=== PATIENT | female | born 1985 | race Caucasian/White ===

== ENCOUNTER 2017-12-10 19:48 | Emergency (ER) | payer BC ==
[2017-12-10] MEDS ORDERED: TRAMADOL HCL 50 MG TAB ONE (20:35)
--- NOTE | 2017-12-10 21:19 | RAD REPORT ---
EXAM DESCRIPTION: RAD - Foot Right 3 View - 12/10/2017 9:10 pm CLINICAL HISTORY: PAIN Smash injury to fifth toe COMPARISON: <Comparisons> FINDINGS: Soft tissue swelling is seen affecting the fifth toe. No fractures seen.
--- NOTE | 2017-12-10 22:30 | ER ---
Nurse's Notes [facility] Name: Soha Ruiz Age: 32 yrs Sex: Female : 1985 Arrival Date: 12/10/2017 Time: 20:06 Bed 20 Private MD: Diagnosis: Contusion right 5th toe Presentation: 12/10 20:06 Presenting complaint: Patient states: dropped full spaghetti sauce jar onto her right tl3 foot, fifth toe is red and swollen. Transition of care: patient was not received from another setting of care. Onset of symptoms was December 10, 2017 at 20:07. Risk Assessment: Do you want to hurt yourself or someone else? Patient reports no desire to harm self or others. Initial Sepsis Screen: Does the patient meet any 2 criteria? No. Patient's initial sepsis screen is negative. Does the patient have a suspected source of infection? No. Patient's initial sepsis screen is negative. Care prior to arrival: None. 20:06 Method Of Arrival: Ambulatory tl3 20:06 Acuity: JEREMIAH 4 tl3 Triage Assessment: 20:08 General: Appears uncomfortable, well groomed, well developed, well nourished, Behavior tl3 is calm, cooperative, appropriate for age. Pain: Complains of pain in right fifth toe and Right fifth toenail Pain currently is 8 out of 10 on a pain scale. 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 - Social history:: Smoking status: Patient uses tobacco products, denies chronic smoking, but will smoke occasionally. - Ebola Screening: : Patient denies travel to an Ebola-affected area in the 21 days before illness onset No symptoms or risks identified at this time. Screenin:24 Abuse screen: Denies threats or abuse. Denies injuries from another. Nutritional bp screening: No deficits noted. Tuberculosis screening: No symptoms or risk factors identified. Fall Risk None identified. Assessment: 20:30 General: Appears in no apparent distress. comfortable, Behavior is calm, cooperative, bp appropriate for age. Pain: Complains of pain in right foot. Neuro: Level of Consciousness is awake, alert, obeys commands, Oriented to person, place, time, situation, Appropriate for age. Cardiovascular: No deficits noted. Respiratory: Airway is patent Respiratory effort is even, unlabored, Respiratory pattern is regular, symmetrical. GI: No signs and/or symptoms were reported involving the gastrointestinal system. : No signs and/or symptoms were reported regarding the genitourinary system. EENT: No deficits noted. Derm: No deficits noted. Musculoskeletal: Circulation, motion, and sensation intact. Range of motion: intact in all extremities. 22:43 Reassessment: PT D/C HOME AMBULATORY WITH FAMILY, DX WITH TOE CONTUSION. bp Vital Signs: 20:08 BP 121 / 79; Pulse 73; Resp 18; Temp 98.5; Pulse Ox 100% ; Weight 54.43 kg; Height 5 tl3 ft. 2 in. (157.48 cm); 22:44 BP 131 / 73; Pulse 75; Resp 18; Pulse Ox 100% ; bp 20:08 Body Mass Index 21.95 (54.43 kg, 157.48 cm) tl3 ED Course: 20:06 Patient arrived in ED. es 20:08 Triage completed. tl3 20:08 Arm band placed on left wrist. tl3 20:11 Aston Lezama MD is Attending Physician. pkl 20:23 Bijan Rangel, WM is Primary Nurse. bp 20:24 Patient has correct armband on for positive identification. Bed in low position. Call bp light in reach. Side rails up X2. Adult w/ patient. 21:06 X-ray completed. Portable x-ray completed in exam room. Patient tolerated procedure la2 well. 21:10 Foot Right 3 View XRAY In Process Unspecified. EDMS 22:28 Aced wrapped rt foot with 2 in kojo wrap. cc 22:43 No provider procedures requiring assistance completed. Patient did not have IV access bp during this emergency room visit. Administered Medications: 20:35 Drug: UltRAM 50 mg Route: PO; bp 21:01 Follow up: Response: Pain is decreased bp Outcome: 22:29 Discharge ordered by . pkl 22:44 Discharged to home ambulatory, with family. bp 22:44 Condition: stable 22:44 Discharge instructions given to patient, Instructed on discharge instructions, follow up and referral plans. medication usage, Demonstrated understanding of instructions, follow-up care, medications, Prescriptions given X 1. 22:44 Patient left the ED. bp Signatures: Dispatcher [employer] Aston Bhatti MD MD pkl Salyer, Edna es Christian, Chelsea cc Ardoin, Leslie la2 Peltier, Brian, RN RN bp Kelsey Schneider RN RN tl3
--- NOTE | 2017-12-10 22:30 | EDPHYS ---
Physician Documentation [facility] Name: Soha Ruiz Age: 32 yrs Sex: Female : 1985 Arrival Date: 12/10/2017 Time: 20:06 Bed 20 Private MD: ED Physician Aston Lezama HPI: 12/10 20:16 This 32 yrs old Female presents to ER via Ambulatory with complaints of Flank pkl Pain. 20:16 The patient presents with an injury, pain, that is acute. The complaints affect the pkl right fifth toe. Context: resulted from Dropped full spaghetti sauce jar onto her right 5th toe. Onset: The symptoms/episode began/occurred just prior to arrival. 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 - Social history:: Smoking status: Patient uses tobacco products, denies chronic smoking, but will smoke occasionally. - Ebola Screening: : Patient denies travel to an Ebola-affected area in the 21 days before illness onset No symptoms or risks identified at this time. ROS: 20:16 MS/extremity: Positive for pain, swelling, tenderness, of the right fifth toe. pkl 20:16 Eyes: Negative for injury, pain, redness, and discharge, ENT: Negative for injury, pain, and discharge, Neck: Negative for injury, pain, and swelling, Cardiovascular: Negative for chest pain, palpitations, and edema, Respiratory: Negative for shortness of breath, cough, wheezing, and pleuritic chest pain, Abdomen/GI: Negative for abdominal pain, nausea, vomiting, diarrhea, and constipation, Back: Negative for injury and pain, : Negative for injury, bleeding, discharge, and swelling, Skin: Negative for injury, rash, and discoloration, Neuro: Negative for headache, weakness, numbness, tingling, and seizure. Exam: 20:16 Head/Face: Normocephalic, atraumatic. Eyes: Pupils equal round and reactive to light, pkl extra-ocular motions intact. Lids and lashes normal. Conjunctiva and sclera are non-icteric and not injected. Cornea within normal limits. Periorbital areas with no swelling, redness, or edema. ENT: Nares patent. No nasal discharge, no septal abnormalities noted. Tympanic membranes are normal and external auditory canals are clear. Oropharynx with no redness, swelling, or masses, exudates, or evidence of obstruction, uvula midline. Mucous membranes moist. Neck: Trachea midline, no thyromegaly or masses palpated, and no cervical lymphadenopathy. Supple, full range of motion without nuchal rigidity, or vertebral point tenderness. No Meningismus. Chest/axilla: Normal chest wall appearance and motion. Nontender with no deformity. No lesions are appreciated. Cardiovascular: Regular rate and rhythm with a normal S1 and S2. No gallops, murmurs, or rubs. Normal PMI, no JVD. No pulse deficits. Respiratory: Lungs have equal breath sounds bilaterally, clear to auscultation and percussion. No rales, rhonchi or wheezes noted. No increased work of breathing, no retractions or nasal flaring. Abdomen/GI: Soft, non-tender, with normal bowel sounds. No distension or tympany. No guarding or rebound. No evidence of tenderness throughout. Back: No spinal tenderness. No costovertebral tenderness. Full range of motion. Skin: Warm, dry with normal turgor. Normal color with no rashes, no lesions, and no evidence of cellulitis. Neuro: Awake and alert, GCS 15, oriented to person, place, time, and situation. Cranial nerves II-XII grossly intact. Motor strength 5/5 in all extremities. Sensory grossly intact. Cerebellar exam normal. Normal gait. 20:16 Musculoskeletal/extremity: Extremities: grossly normal except: noted in the right fifth toe: pain, swelling, tenderness. Vital Signs: 20:08 BP 121 / 79; Pulse 73; Resp 18; Temp 98.5; Pulse Ox 100% ; Weight 54.43 kg; Height 5 tl3 ft. 2 in. (157.48 cm); 22:44 BP 131 / 73; Pulse 75; Resp 18; Pulse Ox 100% ; bp 20:08 Body Mass Index 21.95 (54.43 kg, 157.48 cm) tl3 MDM: 20:11 Patient medically screened. pkl 22:28 Data reviewed: vital signs, nurses notes, radiologic studies, plain films. pkl 06/17 20:21 Order name: Foot Right 3 View XRAY; Complete Time: 01:21 pkl Administered Medications: 20:35 Drug: UltRAM 50 mg Route: PO; bp 21:01 Follow up: Response: Pain is decreased bp Disposition: 12/10/17 22:29 Discharged to Home. Impression: Contusion right 5th toe. - Condition is Stable. - Prescriptions for Ultram 50 mg Oral Tablet - take 1 tablet by ORAL route every 8 hours As needed; 20 tablet. - Medication Reconciliation Form, Thank You Letter, Antibiotic Education, Prescription Opioid Use form. - Follow up: Private Physician; When: 2 - 3 days; Reason: Re-evaluation by your physician. - Problem is new. - Symptoms have improved. Signatures: Dispatcher [employer] EDMS Aston Lezama MD MD pkl Bijan Rangel, RN RN bp Kelsey Schneider RN RN tl3 Corrections: (The following items were deleted from the chart) 22:44 22:29 12/10/2017 22:29 Discharged to Home. Impression: Contusion right 5th toe. bp Condition is Stable. Forms are Medication Reconciliation Form, Thank You Letter, Antibiotic Education, Prescription Opioid Use. Follow up: Private Physician; When: 2 - 3 days; Reason: Re-evaluation by your physician. Problem is new. Symptoms have improved. pkl
== END 2017-12-10 22:44 | disposition home or self-care (01) ==
LOC: ER 19:48
DX: S90.121A Contusion of right lesser toe(s) without damage to nail, initial encounter (principal); W22.8XXA Striking against or struck by other objects, initial encounter; Y93.89 Activity, other specified; Y92.9 Unspecified place or not applicable; Z72.0 Tobacco use
CPT/HCPCS: 99284

== ENCOUNTER 2018-01-27 13:58 | Emergency (ER) | payer BC ==
[2018-01-27 14:56] LABS: Urine Blood NEGATIVE (NEG); Urine Glucose NEGATIVE (NEG); Urine Protein NEGATIVE (NEG); Urine pH 7.5 (5.0-7.0)
[2018-01-27 14:59] LABS: Absolute Lymphocytes (CBC) 1.8 K/uL (0.7-4.9); Absolute Monocytes 0.6 K/uL (0.1-1.3); Absolute Neutrophil 5.5 K/uL (1.8-8.0); Basophils % 0.3 % (0-1.3); Eosinophils % 0.7 % (0-4.4); Hematocrit 44.6 % (36.0-45.0); Lymphocytes % 22.3 % (15.3-44.8); MCH 31.5 pg (27.0-35.0); MCV 91.1 fL (80-100); Monocytes % 7.4 % (3.3-12.3)
[2018-01-27 15:22] LABS: Bilirubin Direct 0.2 mg/dL (0-0.2); Bilirubin Total 0.5 mg/dL (0.2-1.0); Potassium 3.8 mmol/L (3.5-5.1); Protein, Total 7.7 g/dL (6.4-8.2)
[2018-01-27] MEDS ORDERED: FENTANYL CITR 100 MCG/2 ML ONE ×2 (15:27→19:29)
[2018-01-27] MEDS ORDERED: ONDANSETRON 4 MG/2 ML VIAL ONE (15:27)
--- NOTE | 2018-01-27 17:20 | RAD REPORT ---
EXAM DESCRIPTION: CTAbdomen Pelvis W Contrast - 01/27/2018 5:06 pm CLINICAL HISTORY: Abdominal pain. r/o appy ;Abd pain COMPARISON: No comparisons TECHNIQUE: Biphasic CT imaging of the abdomen and pelvis was performed with 100 ml non-ionic IV cont rast. All CT scans are performed using dose optimization technique as appropriate and may include automated exposure control or mA/KV adjustment according to patient size. FINDINGS: The lung bases are clear. The liver demonstrates no aggressive mass or intrahepatic biliary dilatation. Linear hypodensities al aidee the subcapsular margin of the right lobe of the liver noted, nonspecific. The spleen, pancreas, a drenal glands and kidneys are within normal limits. No bowel obstruction, free air, intra-abdominal free fluid or abscess. The appendix is normal. No e vidence of significant lymphadenopathy. The cervix and uterus of the boggy appearance with trace pelv ic free fluid. No suspicious bony findings. IMPRESSION: Normal appendix. Boggy/edematous appearance to the gynecologic organs noted with trace pelvic free fluid. Advise corre lation with possibility gynecologic inflammation or infection.
--- NOTE | 2018-01-27 18:18 | RAD REPORT ---
EXAM DESCRIPTION: US - Transvaginal Study Probe - 01/27/2018 6:10 pm CLINICAL HISTORY: abnormal pelvic CT;Abd pain Pelvic pain. COMPARISON: Abdomen Pelvis W Contrast dated 01/27/2018 FINDINGS: The uterus is normal in size, shape and echotexture. Small 9 mm posterior fundal subserosa l fibroid noted. The uterus measures 8.3 x 5.1 x 4.9 cm. The endometrial stripe measures 8 mm, normal. Both ovaries are normal in size, shape and echotexture. The right ovary measures 3.7 x 2.7 x 1.8 cm. The left ovary measures 2.9 x 1.8 x 1.1 cm. No ovarian or parovarian lesions. No adnexal masses. Normal Doppler blood flow was demonstrated to both ovaries. Mild to moderate pelvic free fluid. IMPRESSION: Small myometrial fibroid. Mild to moderate pelvic free fluid.
--- NOTE | 2018-01-27 19:11 | ER ---
Nurse's Notes [facility] Name: Soha Ray Age: 32 yrs Sex: Female : 1985 Arrival Date: 01/27/2018 Time: 14:02 Bed 7 Private MD: Diagnosis: Uterine fibroid Presentation: 01/27 14:09 Presenting complaint: Patient states: was sent from [facility] urgent care, RLQ pain since yesterday, tender on palpation, c/o nausea, no vomiting, no urinary symptoms. Transition of care: patient was not received from another setting of care. Onset of symptoms was January 27, 2018. Risk Assessment: Do you want to hurt yourself or someone else? Patient reports no desire to harm self or others. Initial Sepsis Screen: Does the patient meet any 2 criteria? No. Patient's initial sepsis screen is negative. Does the patient have a suspected source of infection? No. Patient's initial sepsis screen is negative. Care prior to arrival:. 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 - Social history:: Smoking status: Patient uses tobacco products, denies chronic smoking, but will smoke occasionally. - Ebola Screening: : Patient negative for fever greater than or equal to 101.5 degrees Fahrenheit, and additional compatible Ebola Virus Disease symptoms Patient denies exposure to infectious person Patient denies travel to an Ebola-affected area in the 21 days before illness onset No symptoms or risks identified at this time. Screenin:02 Abuse screen: Denies threats or abuse. Denies injuries from another. Nutritional jl7 screening: No deficits noted. Tuberculosis screening: No symptoms or risk factors identified. Fall Risk IV access (20 points). Total Ayoub Fall Scale indicates No Risk (0-24 pts). Assessment: 14:00 General: Appears in no apparent distress. uncomfortable, Behavior is calm, cooperative, jl7 appropriate for age. Pain: Complains of pain in right lower quadrant Pain radiates to right low back Pain currently is 6 out of 10 on a pain scale. Quality of pain is described as dull, sharp, Is intermittent. Neuro: Level of Consciousness is awake, alert, obeys commands, Oriented to person, place, time, situation, Moves all extremities. Gait is steady. Cardiovascular: Patient's skin is warm and dry. Respiratory: Airway is patent Respiratory effort is even, unlabored, Respiratory pattern is regular, symmetrical. GI: Abdomen is flat, non-distended, Bowel sounds present X 4 quads. Abd is soft X 4 quads Abd is non tender in right upper quadrant, left upper quadrant and left lower quadrant Abdomen is tender to palpation in right lower quadrant. : Urine is cloudy, Reports urinary frequency, Denies burning with urination. EENT: No signs and/or symptoms were reported regarding the EENT system. Derm: Skin is pink, warm \T\ dry. Musculoskeletal: No signs and/or symptoms reported regarding the musculoskeletal system. 15:15 Reassessment: Pt c/o CAMPBELL, rated 8/10 and requesting medication for nausea. Provider [place] notified, see MAR for orders. 15:35 Reassessment: Patient and/or family updated on plan of care and expected duration. Pain jl7 level reassessed. Patient is alert, oriented x 3, equal unlabored respirations, skin warm/dry/pink. Patient states symptoms have improved. 19:40 Reassessment: Patient appears in no apparent distress at this time. Patient and/or aa1 family updated on plan of care and expected duration. Pain level reassessed. Patient is alert, oriented x 3, equal unlabored respirations, skin warm/dry/pink. Pt medicated for pain prior to d/c. Will d/c after 15 min shot time. Discussed d/c \T\ f/u instructions with pt; denies questions or concerns at this time. Vital Signs: 14:00 BP 133 / 85; Pulse 84; Resp 16 S; Temp 98.5(O); Pulse Ox 100% on R/A; Weight 58.97 kg jl7 (R); Height 5 ft. 2 in. (157.48 cm) (R); Pain 6/10; 15:02 BP 114 / 78; Pulse 76; Resp 16; Pulse Ox 100% ; jl7 16:03 BP 108 / 60; Pulse 72; Resp 16; Pulse Ox 100% on R/A; jl7 19:35 BP 106 / 69; Pulse 73; Resp 16; Pulse Ox 100% on R/A; aa1 14:00 Body Mass Index 23.78 (58.97 kg, 157.48 cm) jl7 ED Course: 14:02 Patient arrived in ED. rg4 14:04 Mahad Jimenez MD is Attending Physician. neeraj 14:05 Rambo Mcgregor PA is PHCP. jr8 14:05 Kalina Taveras RN is Primary Nurse. jl7 14:10 Triage completed. iw 14:11 Arm band placed on. iw 14:28 Oral contrast given. vm2 14:30 Initial lab(s) drawn, by me, sent to lab. Urine collected: clean catch specimen, jl7 cloudy. Inserted saline lock: 22 gauge in left antecubital area, using aseptic technique. Blood collected. 15:02 Patient has correct armband on for positive identification. Placed in gown. Bed in low jl7 position. Call light in reach. Side rails up X 1. Pulse ox on. NIBP on. 17:06 CT Abd/Pelvis - W/Contrast In Process Unspecified. EDMS 17:15 Assist provider with pelvic exam: Set up pelvic tray. Performed by Rambo MACHADO jl7 Specimens sent to lab. Patient tolerated well. 17:43 PHCP role handed off by Rambo Mcgregor PA snw 17:43 Soraya Patiño FNP-C is PHCP. snw 18:05 Ultrasound completed. Patient tolerated well. sg3 18:11 US Transvaginal Study (Probe) In Process Unspecified. EDMS 20:01 IV discontinued, intact, bleeding controlled, No redness/swelling at site. Pressure aa1 dressing applied. Administered Medications: 15:23 Drug: Zofran 4 mg Route: IVP; Site: left antecubital; jl7 15:35 Follow up: Response: No adverse reaction; Nausea is decreased jl7 15:25 Drug: fentaNYL (PF) 50 mcg Route: IVP; Site: left antecubital; jl7 15:35 Follow up: Response: No adverse reaction; Pain is decreased jl7 17:35 Drug: fentaNYL (PF) 50 mcg Route: IVP; Site: left antecubital; jl7 18:00 Follow up: Response: No adverse reaction; Pain is decreased jl7 19:40 Drug: TORadol 30 mg Route: IVP; Site: left antecubital; aa1 19:40 Drug: fentaNYL (PF) 25 mcg Route: IM; Site: right deltoid; aa1 Outcome: 19:10 Discharge ordered by . minerva 20:01 Discharged to home ambulatory. aa1 20:01 Condition: good 20:01 Discharge instructions given to patient, Instructed on discharge instructions, follow up and referral plans. medication usage, Demonstrated understanding of instructions, follow-up care, medications, Prescriptions given X 1. 20:02 Patient left the ED. aa1 Signatures: Dispatcher [employer] EDMS Oly Lyles RN RN aa1 Mahad Jimenez MD MD cha Therrien, Shelly, MARBLE SETTER HELPER-C MARBLE SETTER HELPER-Csnw Soco Celeste RN RN iw Roszak, Josh, PA PA jr8 Garcia, Rubi rg4 Kalina Taveras RN RN jl7 Saima Kaiser Shannan Garcia 3
--- NOTE | 2018-01-27 19:11 | EDPHYS ---
Physician Documentation [facility] Name: Soha Ray Age: 32 yrs Sex: Female : 1985 Arrival Date: 01/27/2018 Time: 14:02 Bed 7 Private MD: ED Physician Mahad Jimenez HPI: 01/27 14:36 This 32 yrs old Female presents to ER via Ambulatory with complaints of jr8 Abdominal Pain. 14:36 The patient presents with abdominal pain right lower quadrant. Onset: The jr8 symptoms/episode began/occurred acutely, yesterday. The symptoms radiate to right back. Associated signs and symptoms: none. The symptoms are described as stabbing. Modifying factors: The symptoms are alleviated by nothing, the symptoms are aggravated by nothing. Severity of pain: At its worst the pain was moderate in the emergency department the pain is unchanged. The patient has not experienced similar symptoms in the past. The patient has been recently seen at an urgent care. 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 - Social history:: Smoking status: Patient uses tobacco products, denies chronic smoking, but will smoke occasionally. - Ebola Screening: : Patient negative for fever greater than or equal to 101.5 degrees Fahrenheit, and additional compatible Ebola Virus Disease symptoms Patient denies exposure to infectious person Patient denies travel to an Ebola-affected area in the 21 days before illness onset No symptoms or risks identified at this time. ROS: 14:36 Eyes: Negative for injury, pain, redness, and discharge, ENT: Negative for injury, jr8 pain, and discharge, Neck: Negative for injury, pain, and swelling, Cardiovascular: Negative for chest pain, palpitations, and edema, Respiratory: Negative for shortness of breath, cough, wheezing, and pleuritic chest pain, Back: Negative for injury and pain, MS/Extremity: Negative for injury and deformity, Skin: Negative for injury, rash, and discoloration, Neuro: Negative for headache, weakness, numbness, tingling, and seizure. 14:36 Abdomen/GI: Positive for abdominal pain, Negative for nausea, vomiting, and diarrhea, abdominal distension, anorexia, dysphagia, hematemesis, black/tarry stool, rectal pain, rectal bleeding, bowel incontinence, flatulence. Exam: 14:36 Eyes: Pupils equal round and reactive to light, extra-ocular motions intact. Lids and jr8 lashes normal. Conjunctiva and sclera are non-icteric and not injected. Cornea within normal limits. Periorbital areas with no swelling, redness, or edema. ENT: Nares patent. No nasal discharge, no septal abnormalities noted. Tympanic membranes are normal and external auditory canals are clear. Oropharynx with no redness, swelling, or masses, exudates, or evidence of obstruction, uvula midline. Mucous membranes moist. Neck: Trachea midline, no thyromegaly or masses palpated, and no cervical lymphadenopathy. Supple, full range of motion without nuchal rigidity, or vertebral point tenderness. No Meningismus. Cardiovascular: Regular rate and rhythm with a normal S1 and S2. No gallops, murmurs, or rubs. Normal PMI, no JVD. No pulse deficits. Respiratory: Lungs have equal breath sounds bilaterally, clear to auscultation and percussion. No rales, rhonchi or wheezes noted. No increased work of breathing, no retractions or nasal flaring. Back: No spinal tenderness. No costovertebral tenderness. Full range of motion. Skin: Warm, dry with normal turgor. Normal color with no rashes, no lesions, and no evidence of cellulitis. MS/ Extremity: Pulses equal, no cyanosis. Neurovascular intact. Full, normal range of motion. Neuro: Awake and alert, GCS 15, oriented to person, place, time, and situation. Cranial nerves II-XII grossly intact. Motor strength 5/5 in all extremities. Sensory grossly intact. Cerebellar exam normal. Normal gait. 14:36 Abdomen/GI: Inspection: abdomen appears normal, Bowel sounds: active, all quadrants, Palpation: soft, in all quadrants, moderate abdominal tenderness, in the right lower quadrant, mass, is not appreciated, rebound tenderness, is not appreciated, voluntary guarding, is not appreciated, involuntary guarding, is not appreciated, no appreciated organomegaly, Indicators: McBurney's point is tender, Deshpande's sign is negative, Rovsing's sign is negative, Obturator sign is positive, Psoas sign is negative, Liver: no appreciated palpable abnormalities. Vital Signs: 14:00 BP 133 / 85; Pulse 84; Resp 16 S; Temp 98.5(O); Pulse Ox 100% on R/A; Weight 58.97 kg jl7 (R); Height 5 ft. 2 in. (157.48 cm) (R); Pain 6/10; 15:02 BP 114 / 78; Pulse 76; Resp 16; Pulse Ox 100% ; jl7 16:03 BP 108 / 60; Pulse 72; Resp 16; Pulse Ox 100% on R/A; jl7 19:35 BP 106 / 69; Pulse 73; Resp 16; Pulse Ox 100% on R/A; aa1 14:00 Body Mass Index 23.78 (58.97 kg, 157.48 cm) jl7 MDM: 14:05 Patient medically screened. 8 17:39 Data reviewed: vital signs, nurses notes, lab test result(s), radiologic studies, CT jr8 scan, ultrasound. Data interpreted: Pulse oximetry: on room air is 100 %. Interpretation: normal. Counseling: I had a detailed discussion with the patient and/or guardian regarding: the historical points, exam findings, and any diagnostic results supporting the discharge/admit diagnosis, lab results, radiology results. Transition of care: After a detail discussion of the patient's case, care is transferred to Soraya Patiño [facility]. 01/27 14:15 Order name: Basic Metabolic Panel; Complete Time: 15:25 [facility] 01/27 14:15 Order name: CBC with Diff; Complete Time: 15:13 [facility] 01/27 14:15 Order name: Creatinine for Radiology; Complete Time: 15:28 [facility] 01/27 14:15 Order name: Hepatic Function; Complete Time: 15:25 [facility] 01/27 14:15 Order name: Lipase; Complete Time: 15:25 [facility] 01/27 14:48 Order name: Urine Dipstick--Ancillary (enter results); Complete Time: 15:13 [facility] 01/27 14:15 Order name: CT Abd/Pelvis - W/Contrast; Complete Time: 17:21 [facility] 01/27 14:48 Order name: Urine --Ancillary (enter results); Complete Time: 15:13 [facility] 01/27 17:25 Order name: US Transvaginal Study (Probe); Complete Time: 18:35 01/27 17:26 Order name: Wet Prep; Complete Time: 19:08 01/27 17:26 Order name: GC (GONORR/CHLAMYDIA) Probe [facility] 01/27 14:15 Order name: Urine Test (obtain specimen); Complete Time: 14:56 01/27 14:15 Order name: IV Saline Lock; Complete Time: 14:56 01/27 14:15 Order name: Labs collected and sent; Complete Time: 14:56 01/27 14:15 Order name: Urine Dipstick-Ancillary (obtain specimen); Complete Time: 14:56 Administered Medications: 15:23 Drug: Zofran 4 mg Route: IVP; Site: left antecubital; jl7 15:35 Follow up: Response: No adverse reaction; Nausea is decreased jl7 15:25 Drug: fentaNYL (PF) 50 mcg Route: IVP; Site: left antecubital; jl7 15:35 Follow up: Response: No adverse reaction; Pain is decreased jl7 17:35 Drug: fentaNYL (PF) 50 mcg Route: IVP; Site: left antecubital; jl7 18:00 Follow up: Response: No adverse reaction; Pain is decreased jl7 19:40 Drug: TORadol 30 mg Route: IVP; Site: left antecubital; aa1 19:40 Drug: fentaNYL (PF) 25 mcg Route: IM; Site: right deltoid; aa1 Disposition: 01/27/18 19:10 Discharged to Home. Impression: Uterine fibroid. - Condition is Stable. - Discharge Instructions: Abdominal Pain, Adult, Uterine Fibroids. - Prescriptions for Diclofenac Sodium 75 mg Oral Tablet Sustained Release - take 1 tablet by ORAL route 2 times per day; 30 tablet. - Medication Reconciliation Form, Thank You Letter, Antibiotic Education, Prescription Opioid Use form. - Follow up: Private Physician; When: 5 - 6 days; Reason: Recheck today's complaints, Continuance of care, Re-evaluation by your physician. Follow up: Emergency Department; When: As needed; Reason: Worsening of condition. Addendum: 01/29/2018 13:57 Co-signature as Attending Physician, Mahad Jimenez MD I agree with the assessment and c brown plan of care. Signatures: Dispatcher [employer] EDOly Chatterjee RN RN aa1 Mahad Jimenez MD MD cha Therrien, Shelly, TERRAZZO LAYER-C TERRAZZO LAYER-Csnw Soco Celeste RN RN Rambo May PA PA jr8 Kalina Taveras RN RN jl7 Corrections: (The following items were deleted from the chart) 01/27 20:02 19:10 01/27/2018 19:10 Discharged to Home. Impression: Uterine fibroid. Condition is aa1 Stable. Discharge Instructions: Abdominal Pain, Adult, Uterine Fibroids. Prescriptions for Diclofenac Sodium 75 mg Oral Tablet Sustained Release - take 1 tablet by ORAL route 2 times per day; 30 tablet. and Forms are Medication Reconciliation Form, Thank You Letter, Antibiotic Education, Prescription Opioid Use. Follow up: Private Physician; When: 5 - 6 days; Reason: Recheck today's complaints, Continuance of care, Re-evaluation by your physician. Follow up: Emergency Department; When: As needed; Reason: Worsening of condition. snw
[2018-01-27] MEDS ORDERED: KETOROLAC 30 MG/ML INJ ONE (19:29)
[2018-01-30 20:33] LABS: C.trachomatis RNA,TMA Not Detected (Not Detected)
== END 2018-01-27 20:02 | disposition home or self-care (01) ==
LOC: ER 13:58
DX: D25.9 Leiomyoma of uterus, unspecified (principal); Z72.0 Tobacco use
CPT/HCPCS: 36415; 74177; 76830; 80048; 80076; 81003; 81025; 83690; 85025; 87210; 87490; 87590; 96372; 96374; 96375; 99284; J2405; J3010; Q9967

== ENCOUNTER 2019-01-31 09:17 | Emergency (ER) | payer BC, OTHER, SELFPAY ==
--- OUTSIDE RECORDS SUMMARY | 2019-01-31 09:18 | XMS REPORT ---
:1985 Author Organization [facility] Address [address] [place] [id number] Phone Allergies, Adverse Reactions, Alerts Allergy Name Reaction Description Start Date Severity Status Provider Allergies Unknown Conditions or Problems Problem Name Problem Onset Status Entry Provider Comment Standard Annotate Code Date Date Description Problems Unknown Medication List Medication Instructions Start Stop Generic NDC Status Provider Patient Date Date Name Instruction Drug Treatment Unknown - unknown
[2019-01-31] MEDS ORDERED: ASPIRIN 81 MG CHEWABLE TABLET ONE (09:36)
[2019-01-31] MEDS ORDERED: LORazepam 2 MG/ML VIAL ONE (09:37)
[2019-01-31 09:50] LABS: Protime INR 0.94
[2019-01-31 09:59] LABS: ALT/SGPT 20 U/L (12-78); AST/SGOT 12 U/L (15-37); Albumin 4.4 g/dL (3.4-5.0); Alkaline Phosphatase 59 U/L (45-117); BUN Blood Urea Nitrogen 8 mg/dL (7-18); Bicarbonate 22 mmol/L (21-32); Bilirubin Direct 0.2 mg/dL (0-0.2); Bilirubin Total 0.6 mg/dL (0.2-1.0); Glucose Level 117 mg/dL (74-106); NT PRO-BNP 26 pg/mL (<125); Potassium 3.4 mmol/L (3.5-5.1); Protein, Total 8.7 g/dL (6.4-8.2); Sodium Level 139 mmol/L (136-145); Troponin (Emerg Dept Use Only) < 0.02 ng/mL (0.0-0.045)
[2019-01-31 10:08] LABS: Hematocrit 43.4 % (36.0-45.0); Lymphocytes % 23.1 % (15.3-44.8); MPV 7.8 fL (7.6-11.3); RBC Red Blood Cell Count 4.74 M/uL (3.86-4.86)
[2019-01-31 10:09] LABS: Absolute Lymphocytes (CBC) 1.5 K/uL (0.7-4.9); Basophils % 0.3 % (0-1.3)
[2019-01-31] MEDS ORDERED: DIAZEPAM 10 MG/2 ML INJ SYRINGE ONE ×2 (11:19→13:13)
[2019-01-31] MEDS ORDERED: ONDANSETRON 4 MG/2 ML VIAL ONE (11:20)
[2019-01-31] MEDS ORDERED: MECLIZINE HCL 12.5 MG TAB ONE (11:20)
--- NOTE | 2019-01-31 11:52 | RAD REPORT ---
EXAM DESCRIPTION: RAD - Chest Single View - 01/31/2019 10:13 am CLINICAL HISTORY: Chest pain, presyncope COMPARISON: None. TECHNIQUE: AP portable chest image was obtained 1008 hours . FINDINGS: No focal lung parenchymal process. There is an increase in density over each lower lung fi eld due to the breast implant density. Heart and vasculature are normal. No measurable pleural effusi on and no pneumothorax. Thoracolumbar scoliosis is present without acute bone finding. No acute aorti c findings suspected. IMPRESSION: No acute cardiopulmonary process.
[2019-01-31 13:37] LABS: Urine Blood TRACE (NEG); Urine Glucose NEGATIVE (NEG); Urine Protein NEGATIVE (NEG); Urine pH 8.5 (5.0-7.0)
[2019-01-31 13:59] LABS: Lipase 118 U/L (73-393); Troponin (Emerg Dept Use Only) < 0.02 ng/mL (0.0-0.045)
--- NOTE | 2019-01-31 14:18 | RAD REPORT ---
EXAM DESCRIPTION: CT - Abdomen Pelvis W Contrast - 01/31/2019 1:42 pm CLINICAL HISTORY: Abdominal pain with nausea. COMPARISON: none. TECHNIQUE: Computed axial tomography of the abdomen pelvis was obtained. 100 cc Isovue-300 was admin istered intravenously. Oral contrast was not requested which limits evaluation of bowel. All CT scans are performed using dose optimization technique as appropriate and may include automated exposure control or mA/KV adjustment according to patient size. FINDINGS: The liver, spleen, pancreas, adrenal and kidneys appear unremarkable. There is no evidence of diverticulitis. Appendix is not seen. No stranding within the right lower quadrant. 2 centimeter right ovarian cyst without significant free fluid IMPRESSION: 2 centimeter right ovarian cyst without significant free fluid Nonvisualization of the appendix. My suspicion for appendicitis is low. However if the patient has cl inical symptoms to suggest appendicitis then a CT scan with oral contrast and opacification the termi nal ileum/cecum would be recommended
--- NOTE | 2019-01-31 14:51 | ER ---
Nurse's Notes [facility] Name: Soha Ray Age: 33 yrs Sex: Female : 1985 Arrival Date: 01/31/2019 Time: :19 Bed 6 Private MD: Diagnosis: Abdominal and pelvic pain;Chest pain, unspecified Presentation: 01/31 09:21 Presenting complaint: Patient states: dizziness, vomiting, midsternal/epigastric chest sv pain, SOB, "feel like I'm going to pass out" that started this morning while drinking her coffee; attempted to go to work but was unable to. Reports taking Nyquil the past couple of nights. Transition of care: patient was not received from another setting of care. Onset of symptoms was January 31, 2019. Risk Assessment: Do you want to hurt yourself or someone else? Patient reports no desire to harm self or others. Initial Sepsis Screen: Does the patient meet any 2 criteria? HR > 90 bpm. Does the patient have a suspected source of infection? No. Patient's initial sepsis screen is negative. Care prior to arrival: None. 09:21 Method Of Arrival: Wheelchair sv 09:21 Acuity: JEREMIAH 2 sv Triage Assessment: 09:21 General: Appears in no apparent distress. uncomfortable, slender, well groomed, well sv developed, Behavior is cooperative, appropriate for age, anxious. Pain: Complains of pain in xyphoid area and epigastric area Pain currently is 5 out of 10 on a pain scale. Pain began 2 hours ago. Is intermittent. Neuro: Level of Consciousness is awake, alert, obeys commands, Oriented to person, place, time, situation, Moves all extremities. Full function Gait is steady, Speech is normal. Neuro: Reports dizziness. Cardiovascular: Patient's skin is warm and dry. Rhythm is sinus tachycardia. Respiratory: Reports shortness of breath at rest on exertion Airway is patent Respiratory effort is even, unlabored, Respiratory pattern is regular, symmetrical. GI: Reports nausea, vomiting. Derm: Skin is pink, warm \\T\\ dry. Musculoskeletal: Range of motion: intact in all extremities. 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 - Social history:: Smoking status: Patient uses tobacco products, denies chronic smoking, but will smoke occasionally, Patient uses alcohol, occasionally. - Ebola Screening: : No symptoms or risks identified at this time. Screenin:43 Abuse screen: Denies threats or abuse. Denies injuries from another. Nutritional sv screening: No deficits noted. Tuberculosis screening: No symptoms or risk factors identified. Fall Risk None identified. Assessment: 09:27 Reassessment: at bedside assessing pt at this time. sg 09:47 Reassessment: Patient appears in no apparent distress at this time. No changes from sv previously documented assessment. Patient and/or family updated on plan of care and expected duration. Pain level reassessed. Patient is alert, oriented x 3, equal unlabored respirations, skin warm/dry/pink. 10:04 Reassessment: xray at bedside at this time. sg 10:16 Reassessment: Patient appears in no apparent distress at this time. Patient and/or sv family updated on plan of care and expected duration. Pain level reassessed. Patient is alert, oriented x 3, equal unlabored respirations, skin warm/dry/pink. Patient states feeling better. Patient states symptoms have improved. 11:20 Reassessment: Patient appears in no apparent distress at this time. Patient and/or sv family updated on plan of care and expected duration. Pain level reassessed. Patient is alert, oriented x 3, equal unlabored respirations, skin warm/dry/pink. Patient states symptoms have not improved. 12:20 Reassessment: Patient appears in no apparent distress at this time. Patient and/or sv family updated on plan of care and expected duration. Pain level reassessed. Patient is alert, oriented x 3, equal unlabored respirations, skin warm/dry/pink. Reports dizziness and nausea have improved some but they are still there. Dr Dai informed of pt's status. Patient states symptoms have improved. 13:30 Reassessment: Patient appears in no apparent distress at this time. Patient and/or sv family updated on plan of care and expected duration. Pain level reassessed. Patient is alert, oriented x 3, equal unlabored respirations, skin warm/dry/pink. Vital Signs: 09:22 BP 146 / 101; Pulse 96 MON; Resp 15; Temp 98.6(O); Pulse Ox 100% on R/A; Weight 58.97 sv kg; Height 5 ft. 1 in. (154.94 cm); Pain 5/10; 10:02 BP 126 / 90; Pulse 98; Resp 12; Pulse Ox 98% on R/A; sv 10:41 BP 121 / 88; Pulse 97; Resp 14; Pulse Ox 100% on R/A; sv 11:30 BP 119 / 95; Pulse 86; Resp 18; Pulse Ox 100% ; sv 12:21 BP 106 / 69; Pulse 80 MON; Resp 16; Pulse Ox 100% on R/A; sv 13:00 BP 111 / 78; Pulse 81; Resp 23; Temp 98.8(O); Pulse Ox 98% ; sv 14:06 BP 119 / 75; Pulse 81 MON; Resp 17; Pulse Ox 100% on R/A; sv 14:45 BP 113 / 73; Pulse 85; Resp 22; Pulse Ox 100% on R/A; sv 09:22 Body Mass Index 24.56 (58.97 kg, 154.94 cm) sv 09:22 Sinus Rhythm sv 12:21 Sinus Rhythm sv 14:06 Sinus Rhythm sv ED Course: 09:19 Patient arrived in ED. sg 09:20 Omega Dai MD is Attending Physician. kdr 09:22 Alice Alvarez, WM is Primary Nurse. sv 09:22 Patient has correct armband on for positive identification. Placed in gown. Bed in low sv position. Call light in reach. cafeteria monitor on. Pulse ox on. NIBP on. Door closed. Warm blanket given. Head of bed elevated. 09:25 Triage completed. sv 09:25 Initial lab(s) drawn, by ED staff, sent to lab. Inserted saline lock: 22 gauge in right sv antecubital area, using aseptic technique. ,using aseptic technique. diffusics, done by [facility] tech Blood collected. 09:25 Patient maintains SpO2 saturation greater than 95% on room air. sv 09:26 Arm band placed on. sv 09:37 EKG done, by auto technician mechanic. reviewed by Omega Dai MD. sm3 09:43 Awaiting lab results, Awaiting for x-ray. sv 09:44 Noise minimized. Lights dimmed. sv 10:04 Repeat lab(s) drawn. by me, sent to lab. sg 10:16 Awaiting radiology results. sv 10:19 XRAY Chest (1 view) Sent. sv 10:26 XRAY Chest (1 view) In Process Unspecified. EDMS 13:23 EKG done, by auto technician mechanic. reviewed by Omega Dai MD. sm3 13:23 IV discontinued, intact, bleeding controlled, No redness/swelling at site. Pressure sv dressing applied, Pt stated IV to R AC was burning, IV removed and to be restarted. 13:25 Missed attempt(s): 22 gauge in left antecubital area. Bleeding controlled, band aid sv applied, catheter tip intact. 13:30 Initial lab(s) drawn, by me, sent to lab. Inserted saline lock: 20 gauge in left sv antecubital area, using aseptic technique. Blood collected. Flushed left antecubital with 5 ml normal saline. 13:[address] via wheelchair. sv 13:34 Urine --Ancillary (enter results) Sent. sv 13:34 Urine Dipstick--Ancillary (enter results) Sent. sv 13:46 Patient moved back from [address]. sv 13:46 CT Abd/Pelvis - IV Contrast Only In Process Unspecified. EDMS 15:00 No provider procedures requiring assistance completed. sg Administered Medications: 09:42 Drug: Ativan 1 mg Route: IVP; Site: right antecubital; sv 10:16 Follow up: Response: No adverse reaction; Marked relief of symptoms sv 09:42 Drug: Aspirin Chewable Tablet 324 mg Route: PO; sv 10:16 Follow up: Response: No adverse reaction sv 11:22 Drug: Meclizine 25 mg Route: PO; sv 12:20 Follow up: Response: No adverse reaction; Reports dizziness has improved some but not sv gone away 11:22 Drug: Zofran 4 mg Route: IVP; Site: right antecubital; sv 12:20 Follow up: Response: No adverse reaction sv 11:24 Drug: Valium 5 mg Route: IVP; Site: right antecubital; sv 12:20 Follow up: Response: No adverse reaction sv 13:32 Drug: Valium 5 mg Route: IVP; Site: left antecubital; sv 14:00 Follow up: Response: No adverse reaction sv Intake: Outcome: 14:49 Discharge ordered by . kdr 15:05 Discharged to home ambulatory, with family. sg 15:05 Condition: good 15:05 Discharge instructions given to patient, Instructed on discharge instructions, follow up and referral plans. no drinking with medication, no driving heavy equipment, medication usage, safety practices, Demonstrated understanding of instructions, follow-up care, medications, Prescriptions given X 1. 15:08 Patient left the ED. sg Signatures: Dispatcher [employer] EDAlice Wilson RN RN Malcom Torrez RN RN sg Omega Dai MD MD [facility] Fadumo Pedersen 3 Corrections: (The following items were deleted from the chart) 09:34 09:22 BP 146 / 101; Pulse 96bpm; Monitor: Sinus RhythmResp 15bpm; Pulse Ox 100% RA; sv 58.97 kg; Height 5 ft. 1 in.; BMI: 24.5; Pain 5/10; sv 09:44 09:21 Presenting complaint: Patient states: dizziness, vomiting, SOB, "feel like I'm sv going to pass out" that started this morning while drinking her coffee; attempted to go to work but was unable to. Reports taking Nyquil the past couple of nights. sv 11:34 11:30 BP 119 / 95; Pulse 107bpm; Resp 18bpm; Pulse Ox 100%; sv sv 15:05 13:00 BP 111 / 78; Pulse 81bpm; Resp 23bpm; Pulse Ox 98%; sv sv
--- NOTE | 2019-01-31 14:51 | EDPHYS ---
Physician Documentation [facility] Name: Soha Ray Age: 33 yrs Sex: Female : 1985 Arrival Date: 01/31/2019 Time: 09:19 Bed 6 Private MD: ED Physician Omega Dai HPI: 01/31 09:36 This 33 yrs old Female presents to ER via Wheelchair with complaints of Chest kdr Pain, Shortness Of Breath. 09:36 The patient or guardian reports chest pain that is located primarily in the substernal kdr area. The patient states that while drinking coffee this morning, she began to have chest pain and since then she has been lightheaded and dizzy.. The pain does not radiate. Onset: The symptoms/episode began/occurred suddenly, just prior to arrival, this morning. Associated signs and symptoms: Pertinent positives: diaphoresis, dizziness, lightheadedness, nausea, palpitations, shortness of breath, Pertinent negatives: lower extremity pain, lower extremity swelling, near syncope, recent travel, vomiting. The chest pain is described as aching, dull, a pressure. Duration: The patient or guardian reports multiple episodes, that are intermittent, that wax and wane, with no pattern. Severity of pain: At its worst the pain was mild in the emergency department the pain has improved mildly. Severity of symptoms: At their worst the symptoms were mild moderate just prior to arrival, in the emergency department the symptoms have improved. The patient has not experienced similar symptoms in the past. The patient has not recently seen a physician. The drove to work but continued to feel SOB, light headed and with CP so she drive from her work in [place] back to [facility]. 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 - Social history:: Smoking status: Patient uses tobacco products, denies chronic smoking, but will smoke occasionally, Patient uses alcohol, occasionally. - Ebola Screening: : No symptoms or risks identified at this time. ROS: 09:36 Constitutional: Negative for fever, chills, and weight loss, Eyes: Negative for injury, kdr pain, redness, and discharge, ENT: Negative for injury, pain, and discharge, Neck: Negative for injury, pain, and swelling, Abdomen/GI: Negative for abdominal pain, nausea, vomiting, diarrhea, and constipation, Back: Negative for injury and pain, : Negative for injury, bleeding, discharge, and swelling, MS/Extremity: Negative for injury and deformity, Skin: Negative for injury, rash, and discoloration, Psych: Negative for depression, anxiety, suicide ideation, homicidal ideation, and hallucinations, Allergy/Immunology: Negative for hives, rash, and allergies, Endocrine: Negative for neck swelling, polydipsia, polyuria, polyphagia, and marked weight changes, Hematologic/Lymphatic: Negative for swollen nodes, abnormal bleeding, and unusual bruising. 09:36 Cardiovascular: Positive for chest pain, palpitations, Negative for orthopnea. 09:36 Respiratory: Positive for shortness of breath, at rest. Exam: 09:36 Constitutional: This is a well developed, well nourished patient who is awake, alert, kdr and in mild distress. Head/Face: Normocephalic, atraumatic. Eyes: Pupils equal round and reactive to light, extra-ocular motions intact. Lids and lashes normal. Conjunctiva and sclera are non-icteric and not injected. Cornea within normal limits. Periorbital areas with no swelling, redness, or edema. Neck: Trachea midline, no thyromegaly or masses palpated, and no cervical lymphadenopathy. Supple, full range of motion without nuchal rigidity, or vertebral point tenderness. No Meningismus. Chest/axilla: Normal chest wall appearance and motion. Nontender with no deformity. No lesions are appreciated. Respiratory: Lungs have equal breath sounds bilaterally, clear to auscultation and percussion. No rales, rhonchi or wheezes noted. No increased work of breathing, no retractions or nasal flaring. Abdomen/GI: Soft, non-tender, with normal bowel sounds. No distension or tympany. No guarding or rebound. No evidence of tenderness throughout. Back: No spinal tenderness. No costovertebral tenderness. Full range of motion. Skin: Warm, dry with normal turgor. Normal color with no rashes, no lesions, and no evidence of cellulitis. MS/ Extremity: Pulses equal, no cyanosis. Neurovascular intact. Full, normal range of motion. Neuro: Awake and alert, GCS 15, oriented to person, place, time, and situation. Cranial nerves II-XII grossly intact. Motor strength 5/5 in all extremities. Sensory grossly intact. Cerebellar exam normal. Normal gait. 09:36 Cardiovascular: Rate: tachycardic, Intermittent/borderline tachycarida, Rhythm: regular, Pulses: no pulse deficits are appreciated, Heart sounds: normal, Edema: is not appreciated. Vital Signs: 09:22 BP 146 / 101; Pulse 96 MON; Resp 15; Temp 98.6(O); Pulse Ox 100% on R/A; Weight 58.97 sv kg; Height 5 ft. 1 in. (154.94 cm); Pain 5/10; 10:02 BP 126 / 90; Pulse 98; Resp 12; Pulse Ox 98% on R/A; sv 10:41 BP 121 / 88; Pulse 97; Resp 14; Pulse Ox 100% on R/A; sv 11:30 BP 119 / 95; Pulse 86; Resp 18; Pulse Ox 100% ; sv 12:21 BP 106 / 69; Pulse 80 MON; Resp 16; Pulse Ox 100% on R/A; sv 13:00 BP 111 / 78; Pulse 81; Resp 23; Temp 98.8(O); Pulse Ox 98% ; sv 14:06 BP 119 / 75; Pulse 81 MON; Resp 17; Pulse Ox 100% on R/A; sv 14:45 BP 113 / 73; Pulse 85; Resp 22; Pulse Ox 100% on R/A; sv 09:22 Body Mass Index 24.56 (58.97 kg, 154.94 cm) sv 09:22 Sinus Rhythm sv 12:21 Sinus Rhythm sv 14:06 Sinus Rhythm sv MDM: 09:36 The patient's deep vein thrombosis risk score was calculated as follows: Total Score: kdr 0. This patient was found to be at low risk for a deep vein thrombosis by using the Well's assessment criteria. Data reviewed: vital signs, nurses notes, lab test result(s), EKG, radiologic studies. 13:10 ED course: The patient still c/o pain in her upper abdomen and dizziness. Dizziness has kdr improved but she still feels poorly. Will repeat EKG/Trop and add CT/Lipase. 14:49 Patient medically screened. kdr 01/31 09:23 Order name: Basic Metabolic Panel; Complete Time: 11:02 sv 08/08 09:23 Order name: CBC with Diff sv 0808 09:23 Order name: LFT's; Complete Time: 11:02 sv 01/31 09:23 Order name: Magnesium; Complete Time: 11:02 sv 0808 09:23 Order name: NT PRO-BNP; Complete Time: 11:02 sv 08 09:23 Order name: PT-INR; Complete Time: 11:02 sv 01/31 09:23 Order name: Troponin (emerg Dept Use Only); Complete Time: 11:02 sv 01/31 09:23 Order name: XRAY Chest (1 view); Complete Time: 13:09 sv 08 09:36 Order name: D-Dimer; Complete Time: 11:02 EDMS 08 13:09 Order name: Lipase; Complete Time: 14:19 kdr 08 13:09 Order name: Troponin (emerg Dept Use Only); Complete Time: 14:19 kdr 08 13:31 Order name: Urine Dipstick--Ancillary (enter results); Complete Time: 14:19 hb 08 13:32 Order name: Urine --Ancillary (enter results); Complete Time: 14:43 hb /08 09:23 Order name: EKG; Complete Time: 09:26 sv 08 09:23 Order name: Cardiac monitoring; Complete Time: 09:34 sv 0808 09:23 Order name: EKG - Nurse/Tech; Complete Time: 09:35 sv 08 09:23 Order name: IV Saline Lock; Complete Time: 09:35 sv 01/31 09:23 Order name: Labs collected and sent; Complete Time: 09:35 sv 01/31 09:23 Order name: O2 Per Protocol; Complete Time: 09:35 sv 0808 09:23 Order name: O2 Sat Monitoring; Complete Time: 09:35 sv 0808 13:09 Order name: CT Abd/Pelvis - IV Contrast Only; Complete Time: 14:19 kdr 08 13:12 Order name: EKG - Nurse/Tech; Complete Time: 13:32 kdr Administered Medications: 09:42 Drug: Ativan 1 mg Route: IVP; Site: right antecubital; sv 10:16 Follow up: Response: No adverse reaction; Marked relief of symptoms sv 09:42 Drug: Aspirin Chewable Tablet 324 mg Route: PO; sv 10:16 Follow up: Response: No adverse reaction sv 11:22 Drug: Meclizine 25 mg Route: PO; sv 12:20 Follow up: Response: No adverse reaction; Reports dizziness has improved some but not sv gone away 11:22 Drug: Zofran 4 mg Route: IVP; Site: right antecubital; sv 12:20 Follow up: Response: No adverse reaction sv 11:24 Drug: Valium 5 mg Route: IVP; Site: right antecubital; sv 12:20 Follow up: Response: No adverse reaction sv 13:32 Drug: Valium 5 mg Route: IVP; Site: left antecubital; sv 14:00 Follow up: Response: No adverse reaction sv Disposition: 01/31/19 14:49 Discharged to Home. Impression: Abdominal and pelvic pain, Chest pain, unspecified. - Condition is Stable. - Discharge Instructions: Abdominal Pain, Adult, [id number], Nonspecific Chest Pain, [id number], Generalized Anxiety Disorder. - Prescriptions for Tramadol 50 mg Oral Tablet - take 1 tablet by ORAL route every 8 hours as needed; 12 tablet. - Work release form, Medication Reconciliation Form, Thank You Letter, Prescription Opioid Use form. - Follow up: Private Physician; When: 2 - 3 days; Reason: If symptoms return, Further diagnostic work-up, Recheck today's complaints, Continuance of care, Re-evaluation by your physician. - Problem is new. - Symptoms have improved. Signatures: Dispatcher [employer] [facility] Alice Alvarez RN RN sv Gay, Steven, RN RN sg Rittger, Kevin, MD MD [facility] Corrections: (The following items were deleted from the chart) 09:36 09:26 D-DIMER+[id number].BRZ ordered. [facility] 15:08 14:49 01/31/2019 14:49 Discharged to Home. Impression: Abdominal and pelvic pain; Chest sg pain, unspecified. Condition is Stable. Forms are Medication Reconciliation Form, Thank You Letter, Antibiotic Education, Prescription Opioid Use. Follow up: Private Physician; When: 2 - 3 days; Reason: If symptoms return, Further diagnostic work-up, Recheck today's complaints, Continuance of care, Re-evaluation by your physician. Problem is new. Symptoms have improved. kdr
--- NOTE | 2019-01-31 16:26 | EKG ---
Test Date: 2019-01-31 Test Time: 13:19:32 Supervisor [employer] Installation: AG/S MEASUREMENT RESULTS: Intervals: Rate: 75 CT: 104 QRSD: 90 QT: 386 QTc: 431 [place]: P: 49 CT: 104 QRS: 77 T: 74 INTERPRETIVE STATEMENTS: Sinus rhythm with short CT Otherwise normal ECG Compared to ECG 01/31/2019 09:34:[address] interval now present Electronically Signed On 01-31-19 16:25:21 CDT by Wesley Dumont
--- NOTE | 2019-01-31 16:28 | EKG ---
Test Date: 2019-01-31 Test Time: 09:34:15 School Counsellor: DAMIEN MEASUREMENT RESULTS: Intervals: Rate: 94 LA: 118 QRSD: 94 QT: 352 QTc: 440 [place]: P: 66 LA: 118 QRS: 78 T: 74 INTERPRETIVE STATEMENTS: Normal sinus rhythm Normal ECG Compared to ECG 12/24/2003 01:48:00 Incomplete right bundle-branch block no longer present T-wave abnormality no longer present Electronically Signed On 01-31-19 16:26:08 CDT by Wesley Dumont
== END 2019-01-31 15:08 | disposition home or self-care (01) ==
LOC: ER 09:17
DX: R10.2 Pelvic and perineal pain (principal); F41.9 Anxiety disorder, unspecified; Z72.0 Tobacco use
CPT/HCPCS: 93005 ×2; 85025; 80048; 36415; 83735; 81025; 85610; 85379; 80076; 81003; 84484 ×2; 83690; 83880; 74177; 71045; 99285; Q9967; J3360 ×2; J2405; 96374; 96375

== ENCOUNTER 2025-02-17 16:30 | Emergency (ER) | payer SELFPAY ==
--- OUTSIDE RECORDS SUMMARY | 2025-02-17 16:34 | XMS REPORT | Continuity of Care Document ---
Author Name Unknown Address [address] [facility] [place]. [address] [place] [address] Organization [facility] [place] Address [address] [facility]. [address] [place] [address] Care Team Providers Care Button Sewer Name Role Phone KATIE HOWARD Primary Care Physician Unavailab TITUS Louise Attending Clinician Unavailable Titus Esparza DO Attending Clinician [phone] TANNER HUNTER Attending Clinician Unavailable Nurse, [facility] Attending Clinician Un available Unknown, Attending Attending Clinician Unavailab le Doctor Unassigned, [place] Attending Clinician U dylonailEmilie Patel Attending Clinician ADIS Dumont Attending Clinician Unavailable TITUS ESPARZA Admitting Clinician Unavailable Emilie oCrrea Admitting Clinician Lázaro farris Payers Payer Name Policy Type Policy Number Effective Date Expirati on Date Source TSHBP 90 DEGREE AND BENEFITS [id number] 2023 00:00:00 Problems Condition Name Condition Details Condition Category Status Onset Date Resolution Date Last Treatment Date Treating Clinician Comments Source Papanicola ou smear of cervix with low grade squamous intraepith elial lesion (LGSIL) Papanicola ou smear of cervix with low grade squamous intraepith elial lesion (LGSIL) Disease Active 11-03 00:00: 00 [facility] Cervical high risk human papillomav irus (HPV) DNA test positive Cervical high risk human papillomav irus (HPV) DNA test positive Disease Active 11-03 00:00: 00 [facility] Status post colposcopy Status post colposcopy Disease Active 11-03 00:00: 00 [facility] Contracept kenya management Contracept kenya management Disease Active 10-04 00:00: 00 [facility] Irregular menstrual cycle Irregular menstrual cycle Disease Active 03-18 00:00: 00 [facility] Acne Acne Disease Active 03-18 00:00: 00 [facility] Allergies, Adverse Reactions, Alerts Allergy Name Allergy Type Status Severity Reaction(s) Onset Date Inactive Date Treating Clinician Comments Source No Known Allergie s DA Active U 2012-06 00:00: 00 [facility] NO KNOWN ALLERGIE S Drug Class Active [facility] Social History Social Habit Start Date Stop Date Quantity Comments Source [facility] 2023-07-18 00:00:00 2023-07-18 00:00:00 0 /d [facility] History of Social function 2023-07-18 00:00:00 2023-07-18 00:00:00 [facility] Tobacco use and exposure 2014-03-18 00:00:00 2014-03-18 00:00:00 Smokeless tobacco non-user [facility] Sex Assigned At 1985 00:00:00 1985 00:00:00 [facility] Smoking Status Start Date Stop Date Source Never smoked tobacco [facility] Medications Ordered Medication Name Filled Medication Name Start Date Stop Date Current Medication? Ordering Clinician Indication Dosage Frequency Signature (SIG) Comments Components Source methocarbam oL (ROBAXIN) tablet 500 mg 08-09 20:00: 00 08-09 19:24 :00 No 500mg 500 mg, Oral, ONCE NOW, 1 dose, On Mon08/09/23 at 1400, Routine [facility] naproxen sodium 550 mg tablet 08-09 00:00: 00 Yes [id number] 550mg Take 1 tablet by mouth in the morning and 1 tablet in the evening. Take with meals. [facility] methylPREDN ISolone 4 mg tablets 08-09 00:00: 00 Yes [id number] Take by mouth SEE-INSTRU CTIONS. follow package directions [facility] methocarbam oL 500 mg tablet 08-09 00:00: 00 08-15 05:59 :00 No [id number] 500mg Take 1 tablet by mouth in the morning and 1 tablet at noon and 1 tablet in the evening. Do all this for 5 days. [facility] norgestimat e-ethinyl estradiol (TRI-SPRINT EC) 0.18/0.215/ 0.25 mg-35 mcg (28) tablet 10-04 00:00: 00 Yes [id number] 1{tbl} Take 1 Tab by mouth daily. [facility] Immunizations Ordered Immunization Name Filled Immunization Name Date Status Comments Source TDAP 2013-02-24 00:00:00 Completed [facility] TDAP Unknown Completed [facility] TDAP Unknown Completed [facility] TDAP Unknown Completed [facility] Vital Signs Vital Name Observation Time Observation Value Comments S ource Systolic blood pressure 2023-08-09 18:35:00 137 mm[Hg] [facility] Diastolic blood pressure 2023-08-09 18:35:00 91 mm[Hg] [facility] Heart rate 2023-08-09 18:35:00 83 /min [facility] Body temperature 2023-08-09 18:35:00 37.39 Yeimi [facility] Respiratory rate 2023-08-09 18:35:00 18 /min [facility] Body height 2023-08-09 18:35:00 157.5 cm [facility] Body weight 2023-08-09 18:35:00 65.318 kg [facility] BMI 2023-08-09 18:35:00 26.34 kg/m2 [facility] Oxygen saturation in Arterial blood by Pulse oximetry 2023-08-09 18:35:00 100 /min [facility] Systolic blood pressure 2023-08-09 17:59:00 141 mm[Hg] [facility] Diastolic blood pressure 2023-08-09 17:59:00 106 mm[Hg] [facility] Heart rate 2023-08-09 17:59:00 83 /min [facility] Body temperature 2023-08-09 17:59:00 36.5 Yeimi [facility] Respiratory rate 2023-08-09 17:59:00 28 /min [facility] Body height 2023-08-09 17:59:00 157.5 cm [facility] Body weight 2023-08-09 17:59:00 65.516 kg [facility] BMI 2023-08-09 17:59:00 26.42 kg/m2 [facility] Oxygen saturation in Arterial blood by Pulse oximetry 2023-08-09 17:59:00 100 /min [facility] Systolic blood pressure 2022-05-27 21:13:00 125 mm[Hg] [facility] Diastolic blood pressure 2022-05-27 21:13:00 81 mm[Hg] [facility] Heart rate 2022-05-27 21:13:00 86 /min [facility] Body temperature 2022-05-27 21:13:00 36.78 Yeimi [facility] Respiratory rate 2022-05-27 21:13:00 16 /min [facility] Body height 2022-05-27 21:13:00 157.5 cm [facility] Body weight 2022-05-27 21:13:00 61.236 kg [facility] BMI 2022-05-27 21:13:00 24.69 kg/m2 [facility] Oxygen saturation in Arterial blood by Pulse oximetry 2022-05-27 21:13:00 98 /min [facility] Procedures Procedure Date / Time Performed Performing Clinicia n Source ASSIGNMENT OF BENEFITS 2023-08-09 20:22:21 Docto r Unassigned, [place] [facility] CT CERVICAL SPINE WO CONTRAST 2023-08-09 19:48:00 Titus Esparza [facility] CT THORACIC SPINE WO CONTRAST 2023-08-09 19:48:00 Titus Esparza [facility] URINALYSIS 2023-08-09 19:24:00 Titus Esparza [facility] CONSENT/REFUSAL FOR DIAGNOSIS AND TREATMENT 2023-08-09 18:21:40 Doctor Unassigned, [place] [facility] PATIENT FINANCIAL POLICY 2023-08-09 17:51:27 Doctor Unassigned, [place] [facility] ASSIGNMENT OF BENEFITS 2023-08-09 17:51:15 Docto r Unassigned, [place] [facility] Encounters Start Date/Time End Date/Time Encounter Type Admission Type Attending [facility] Facility Care Department Encounter ID Source 2023-08-09 12:37:00 2023-08-09 14:49:00 Emergency X TITUS ESPARZA [facility] ERT [id number] [facility] 2023-08-09 12:37:00 2023-08-09 14:49:00 Emergency Titus Esparza [facility] [id number] [id number] [facility] 2023-08-09 12:00:00 2023-08-09 13:19:58 Outpatient R TANNER HUNTER [facility] [id number] [facility] 2023-08-09 12:00:00 2023-08-09 12:20:00 Nurse Visit Nurse, [facility] Unknown, Attending [facility] 1.84.114 [id number] [id number] [id number] [facility] 2023-08-09 00:00:00 2023-08-09 00:00:00 Orders Only Doctor Unassigned, [place] [facility] [id number] [id number] [id number] [facility] 2022-05-27 15:00:00 2022-05-27 15:16:51 Outpatient R TANNER HUNTER [facility] [id number] [facility] 2022-05-27 15:00:00 2022-05-27 15:16:51 Nurse Visit Nurse, [facility] Unknown, Attending [facility] [id number] [id number] [id number] [facility] 2021-06-10 10:10:00 2021-06-11 11:24:00 Inpatient Emilie Wilcox [facility] MEDI.01 [id number] [facility] 2021-02-10 18:10:00 2021-02-10 18:10:00 Outpatient ADIS NOLAND [facility] [id number] [facility] 2021-02-04 11:30:00 2021-02-02 11:30:00 Inpatient Emilie Wilcox [facility] DAYS [id number] [facility] Results Test Description Test Time Test Comments Results Result Comments Source CT CERVICAL SPINE WO CONTRAST 2023-07-27 4 19:59:56 EXAM: CT CERVICAL SPINE WO CONTRAST, CT THORACIC SPINE WO CONTRAST HISTORY: Neck trauma, focal neuro deficit or paresthesia (Age 16-64y) TECHNIQUE: CTs of the cervical and thoracic spine were performed withoutintravenous contrast. Sagittal and coronal reformats were generated. COMPARISON: None. FINDINGS: CT CERVICAL SPINE There is straightening of cervical lordosis. Vertebral bodies are normal inheight and alignment. No acute fracture or subluxation. Normal alignment of atlantoaxial joint and craniocervical junction. Disc spaces are preserved. The prevertebral soft tissues are unremarkable. The visualized lungs are clear. CT THORACIC SPINE The vertebral bodies are normal in height and alignment. No acute fractureor subluxation. Disc spaces are preserved. The paraspinal soft tissues are unremarkable. [facility] CT THORACIC SPINE WO CONTRAST 2023-07-27 4 19:59:56 EXAM: CT CERVICAL SPINE WO CONTRAST, CT THORACIC SPINE WO CONTRAST HISTORY: Neck trauma, focal neuro deficit or paresthesia (Age 16-64y) TECHNIQUE: CTs of the cervical and thoracic spine were performed withoutintravenous contrast. Sagittal and coronal reformats were generated. COMPARISON: None. FINDINGS: CT CERVICAL SPINE There is straightening of cervical lordosis. Vertebral bodies are normal inheight and alignment. No acute fracture or subluxation. Normal alignment of atlantoaxial joint and craniocervical junction. Disc spaces are preserved. The prevertebral soft tissues are unremarkable. The visualized lungs are clear. CT THORACIC SPINE The vertebral bodies are normal in height and alignment. No acute fractureor subluxation. Disc spaces are preserved. The paraspinal soft tissues are unremarkable. [facility] HGB [id number] 06:37:00* Test Item Value Reference Range Interpretation Comme nts HEMOGLOBIN (test code = HGB) 12.2 g/dL 10.1-13.8 N HEMATOCRIT (test code = HCT) 35.7 % 32.5-41.8 N COVID 19 Asymptomatic IH [id number] 14:18:00* Test Item Value Reference Range Interpretation Comme nts COVID 19 Asymptomatic IH AG (test code = COVNONPUIAG) NEGATIVE NEGATIVE This test has be en authorized only for the detection ofproteins from SARS-CoV-2, not for any other viruses orpathogens. Negative results should be treated as presumptive andconfirmed with a molecular assay, if necessary for patientmanagement. Negative results do not rule out COVID-19 andshould not be used as the sole basis for treatment orpatient management decisions, including infection controldecisions. Negative results should be considered in thecontext of a patient's recent exposures, history and thepresence of clinical signs and symptoms consistent withCOVID-19. This test has not been FDA cleared or approved; the test hasbeen authorized by FDA under an Emergency Use Authorization(EUA) for use by laboratories certified under the CLIA thatmeet the requirements to perform moderate, high or waivedcomplexity tests. This test is authorized for use at thePoint of Care (POC), i.e., in patient care settingsoperating under a CLIA Certificate of Waiver, Certificate ofCompliance, or Certificate of Accreditation. This test is only authorized for the duration of thedeclaration that circumstances exist justifying theauthorization of emergency use of in vitro diagnostic testsfor detection and/or diagnosis of COVID-19 under Wbqpmjv174(b)(1) of the Act, 21 U.S.C. 360bbb-3(b)(1), unless theauthorization is terminated or revoked sooner. PROTHROMBIN [id number] 13:24:00* Test Item Value Reference Range Interpretation Comme nts PROTHROMBIN TIME PATIENT (te st code = PTP) 12.8 secs 10.1-12.3 H THROMBOPLASTIN TIME [id number] 13:24:00* Test Item Value Reference Range Interpretation Comme nts THROMBOPLASTIN TIME PARTIAL (test code = PTT) 35.0 secs 22-38 N CBC W/AUTO [id number] 13:15:00* Test Item Value Reference Range Interpretation Comme nts WHITE BLOOD CELL (test code = WBC) 6.3 K/mm3 6.5-12.3 L RED BLOOD CELL (test code = RBC) 4.33 M/mm3 3.51-4.69 N HEMOGLOBIN (test code = HGB) 13.1 g/dL 10.1-13.8 N HEMATOCRIT (test code = HCT) 38.7 % 32.5-41.8 N MEAN CELL VOLUME (test code = MCV) 89.4 fL 84.6-96.6 N MEAN CELL HGB (test code = MCH) 30.3 pg 27.3-33.9 N MEAN CELL HGB CONCETRATION ( test code = MCHC) 33.9 gm/dL 32.0-34.2 N RED CELL DISTRIBUTION WIDTH (test code = RDW) 10.9 % 12.2-16.3 L PLATELET COUNT (test code = PLT) 293 K/mm3 134-363 N MEAN PLATELET VOLUME (test c ode = MPV) 10.0 fL 9.2-12.7 N NEUTROPHIL % (test code = NT%) 64.0 % 57.9-77.3 N LYMPHOCYTE % (test code = LY%) 27.0 % 14.5-29.7 N MONOCYTE % (test code = MO%) 7.9 % 3.6-10.2 N EOSINOPHIL % (test code = EO%) 0.6 % 0.0-3.0 N BASOPHIL % (test code = BA%) 0.3 % 0.1-0.9 N NEUTROPHIL # (test code = NT#) 4.0 K/mm3 LYMPHOCYTE # (test code = LY#) 1.7 K/mm3 MONOCYTE # (test code = MO#) 0.5 K/mm3 EOSINOPHIL # (test code = EO#) 0.04 K/mm3 BASOPHIL # (test code = BA#) 0.0 K/mm3 RBC MORPHOLOGY REQUIRED (laura t code = RBCM) NORMAL NORMAL PLATELET MORPHOLOGY REQUIRED (test code = PLTMR) NORMAL NORMAL HCG SERUM [id number] 12:56:00* Test Item Value Reference Range Interpretation Comme nts HCG SERUM QUAL (test code = HCGQL) NEGATIVE Notes Date/Time Note Provider Source 2023-08-09 14:48:26 Patient discharged home. Follow up with pcp as needed. Return to ED if symptoms worsen and don't improve. Patel RN [facility] 2023-08-09 12:34:54 Patient arrived ambulatory c/o of neck pain and back pain started yesterday. Denies any injury to her upper back and neck. Tried tylenol yesterday did not help with pain. Only thing that helped with pain was a heating pad. Carlos RN [facility] 2021-06-11 07:18:00 [facility] Discharge Summary REPORT#:[id number] REPORT STATUS: Signed DATE:06/11/21 TIME: 717 PATIENT: ANALI GALLARDO UNIT #: [id number] ROOM/BED: [address] : [address] AGE: 35 SEX: F ATTEND: Emilie Correa MD ADM AUTHOR: Emliie Correa MD * ALL edits or amendments must be made on the electronic/computer document * PCP PCP PCP: PCP: Emilie Correa MD Pending result: uterine pathology Discharge to: home General Information Free Text A P: 35yo pod#1 s/p uncomplicated robotic-assisted total laparoscopic hysterectomy with bilateral salpingectomies and cystoscopy VSSAF Pain controlled with oral meds Voiding Tolerating regular diet, awaiting flatus Ambulates without symptoms No bleeding. Hb 13->12 DC home today with strict precuations (call with bleeding/fever/pain) Date of admission: Observation Start Date: 06/10/21 Date of admission: 06/10/21 Discharge date: 06/11/21 Admission diagnosis: pelvic pain Discharge diagnosis: sp robotic hysterectomy Hospital course: 35yo pod#1 s/p uncomplicated robotic-assisted total laparoscopic hysterectomy with bilateral salpingectomies and cystoscopy VSSAF Pain controlled with oral meds Voiding Tolerating regular diet, awaiting flatus Ambulates without symptoms No bleeding. Hb 13->12 DC home today with strict precuations (call with bleeding/fever/pain) Pt. condition on discharge: improved Med Rec PCP PCP: PCP: Emilie Correa MD Med Rec Discharge meds: Continue taking these medications: clonazePAM (KlonoPIN) 0.5 MG TAB 0.5 TABLET ORAL as needed for ANXIETY SERTRALINE (ZOLOFT) 50 MG TAB 50 MILLIGRAM ORAL DAILY. ESZOPICLONE (LUNESTA) 3 MG TAB 3 MILLIGRAM ORAL BEDTIME. Start taking the following new medications: ACETAMINOPHEN (TYLENOL) 325 MG TAB 650 MILLIGRAM ORAL EVERY 6 HOURS NEEDED. as needed for PAIN SCALE 1-3 ( USE 1ST) Qty = 20 No Refills HYDROcodone/APAP (NORCO 10/325) 10 MG-325 MG TAB 1 TABLET ORAL EVERY 6 HOURS NEEDED. as needed for SEVERE PAIN (SCALE 7- 10) Qty = 20 No Refills IBUPROFEN (MOTRIN) 600 MG TAB 600 MILLIGRAM ORAL EVERY 6 HOURS NEEDED. as needed for PAIN SCALE 1-3 ( USE 2ND) Qty = 30 No Refills DOCUSATE SODIUM (COLACE) 100 MG CAP 100 MILLIGRAM ORAL EVERY EVENING. Qty = 20 No Refills Objective VS/I O Last Documented: Result Date Time Pulse Ox 96 06/11 400 B/P 91/55 06/11 400 B/P Mean 66.7 06/11 400 O2 Delivery Room air 06/11 400 Temp 97.5 06/110 Pulse 70 06/11 040 Resp 16 06/11 040 O2 Flow Rate 10 06/10 1101 24 hour I O ending at 0700: 06/11 0700 06/10 1900 Intake Total 1400.00 2000.00 Output Total 600 900 Balance 800.00 1100.00 Intake, IV 900.00 2000.00 Intake, Oral 500 Number Voids 2 Output, 50 Estimated Blood Loss Output, Urine 600 850 PATIENT WEIGHT: Weight (lb): 137 Weight (oz): 2.04 Weight (kg): 62.200 General appearance: alert, awake, oriented, no acute distress GI: soft, non-tender, no guarding, no rebound, no distention Extremities: moves all, no edema-all extremities, normal capillary refill Skin: dry, intact, no gross abnormalities, normal color Results Findings/Data: Laboratory Tests: 06/11 06 Hematology Hgb (10.1 - 13.8 g/dL) 12.2 Hct (32.5 - 41.8 %) 35.7 Discharge Instructions PCP PCP: PCP: Emilie Correa MD )( Discharge to: Home/Self Care Discharge Instructions Additional Discharge Routines: Attending Follow-Up )( Diet: Regular )( Activity: As Tolerated, pelvic rest 8 weeks )( Notify PCP of these S/S: fever >100.4, bleeding that needs more than pantyliner Prescriptions: e-prescribe Discharge management: less than 30 mins Follow-up Appointments Attending Physician: Attending Physician: Emilie Correa MD Attending physician follow up timeframe: In 1-2 weeks Quality: Gen Med Crit Care VTE Prophylaxis VTE prophylaxis initiated: yes (mechanical comp device) at 0723 RPT #:[id number] END OF REPORT [facility] 2021-06-10 09:51:00 [facility] ([facility] Clinical Note REPORT#:[id number] REPORT STATUS: Signed DATE:06/10/21 TIME: 950 PATIENT: ANALI GALLARDO UNIT #: [id number] ROOM/BED: : 83 AGE: 35 SEX: F ATTEND: Emilie Correa MD ADM AUTHOR: Emilie Correa MD * ALL edits or amendments must be made on the electronic/computer document * Clinical Note Note: See paper H P from the office dated 06/10/21 35yo taking Naproxen for daily pelvic pain. Patient has small fibroid on posterior uterus and uterus is diffusely tender to palpation. Desires definitive surgical management of pelvic pain with hysterectomy. Plan for robotic-assisted TLH BS cysto with ovarian preservation Hb 13.1 COVID neg PMH: depression/anxiety on zoloft 50mg and Klonipin prn, Lunesta for insomnia PSH: LEEP, breast aug ALL NKDA at 0957 RPT #:[id number] END OF REPORT [facility] 2021-06-10 09:46:00 [facility] ([facility]) Full Op Note REPORT#:[id number] REPORT STATUS: Signed DATE:06/10/21 TIME: 945 PATIENT: ANALI GALLARDO UNIT #: [id number] ROOM/BED: 2630-A : 83 AGE: 35 SEX: F ATTEND: Emilie Correa MD ADM AUTHOR: Emilie Correa MD * ALL edits or amendments must be made on the electronic/computer document * See Addendum Operative Report Start date: 06/10/21 Start time: 075 Pre-procedure diagnosis: pelvic pain, uterine fibroid Post-procedure diagnosis: same Procedures performed: robotic-assisted total laparoscopic hysterectomy bilateral salpingectomies cystoscopy Technique/Procedure: The patient was taken to the operating room, where she was placed under general anesthesia. She had already received her perioperative medications including Ancef for surgical prophylaxis. She was then prepped and draped in the dorsal lithotomy position in the [facility]. A Ash catheter was placed. A weighted speculum was inserted and a right angle retractor and the cervix was grasped with a single tooth tenaculum. The uterus was then sounded and then progressively dilated. The [employer] manipulator device was now placed into the uterus and vagina to provide a means of uterine manipulation. Attention was now turned to the umbilical fold where an 8-mm incision was made in the superior aspect of the fold and a Veress needle was inserted. Easy saline flow and low intra-abdominal pressure were confirmed. The abdomen was insufflated with CO2 gas. Once appropriate intra-abdominal pressures were obtained, the Veress needle was then removed and the trocar was then placed. Intraperitoneal placement was confirmed with the camera. The patient was then placed in Trendelenburg position and the lateral ports were marked at 10cm bilaterally, and the accessory port placement was marked at 5cm laterally to the left and caudad. Local anesthesia was infiltrated and an 8-mm skin incision was then made. An 8-mm trocar and sleeve were then advanced in to the abdomen under direct visualization bilaterally. The ports had been inserted to the black ring. At this time, the robot was now docked and the monopolar scissors were inserted into arm 3 and the vessel sealer was inserted into arm 1 under direct visualization. At this time, the surgeon went to the console and began the hysterectomy. Attention was turned to the left side where the left salpingectomy was performed by serial cautery and ligation with the vessel sealer. This was followed by the uteroovarian ligament, the round ligament, and the remainder of the broad ligament on this side. The course of the ureter was identified and care was taken to avoid the ureter throughout the dissection. The vesicouterine reflection was opened with care as it was densely adherent to the lower uterine segment. The reflection was opened up to visualize the uterine arteries and stay well away from the bladder. The left uterine arteries were cauterized using the vessel sealer. Attention was turned to the opposite side where the right tube and right uterine pedicles were taken down in the same fashion. The vesicouterine peritoneum was divided using the monopolar scissors and then the bladder flap was dissected back using blunt dissection. The MARISABEL cup was easily identified and the anterior colpotomy was then performed. This was carried around laterally with hemostasis being obtained where required using thev vessel sealer. Attention was now turned posteriorly and the uterus was elevated and the uterosacral ligaments on both sides were cauterized using the vessel sealer and the posterior colpotomy was then performed using the monopolar scissors and this was carried around to complete the colpotomy. The uterus and tubes were now removed vaginally and the V-Loc suture was handed through the vagina and a pack was then placed into the vagina to maintain pneumoperitoneum. The V-Loc suture was now used to close the vaginal cuff in a running fashion. Good hemostasis was noted. The pelvis was irrigated and there was no bleeding seen under low pressure. The ureters were identified on both sides with good peristalsis. The instruments were now removed.The robot was now undocked and the ports were removed after the abdomen had desufflated and the skin incisions were closed with suture followed by Dermabond. Sponge stick was used to check the vaginal cuff, where no active bleeding was seen. The ash catheter was removed with 250cc in the bag. A 70 degree cystoscope was introduced showing strong, bilateral ureteral jets, intact bladder dome and no evidence of foreign body. Cystoscope was removed and ash was left out. Sponge, lap, needle, and instrument counts were correct X2 and the patient was taken to recovery room after she had been extubated in stable condition. Primary Surgeon: Emilie Correa MD Client Executive(s): MAXWELL Rosado Anesthesia: general anesthesia Operative findings: 8 week size uterus with 1cm subserosal fibroid on posterior normal appearance of gallbladder, liver edge, appendix, and bilateral ovaries Complications: none Estimated blood loss in ml's: 50cc Specimens removed/altered: uterus with cervix and bilateral fallopian tubes Implant(s): none Urine output: 250cc Disposition: MEDSURG Counts: Sponge count: correct Instrument count: correct Needle count: correct Wound class: clean-contaminated at 0951 Addendum 1: 06/10/21 1207 by Emilie Correa MD 2nd assist Dr. Chelo Singer, R3 at 1207 [facility] #:[id number] END OF REPORT [facility]
[2025-02-17] MEDS ORDERED: LIDOCAINE HCL JELLY 2% 6 ML SYRINGE TOP ONE (16:44)
[2025-02-17] MEDS ORDERED: IBUPROFEN 400 MG TAB ONE (16:50)
[2025-02-17] MEDS ORDERED: HYDROCODONE/APAP 5/325 MG TAB ONE (16:51)
--- NOTE | 2025-02-17 17:12 | EDPHYS ---
Physician Documentation [facility] Name: Soha Ray Age: 39 yrs Sex: Female : 1985 Arrival Date: 02/17/2025 Time: 16:30 Bed 20 Private MD: ED Physician Kvng Modi HPI: 02/17 16:49 This 39 yrs old Female presents to ER via Ambulatory with complaints of Mouth Swelling, sb4 Facial Swelling. 16:49 the patient presents with a swollen area of the left cheek. Description: The affected sb4 area is very small, localized, swollen, tense, warm. Onset: The symptoms/episode began/occurred 3 day(s) ago. Possible cause(s): pimple. Historical: - Allergies: 16:36 No Known Allergies; dd2 - PMHx: 16:36 Anxiety; dd2 - PSHx: 16:36 partial hysterectomy; dd2 - Immunization history:: Adult Immunizations up to date. - Infectious Disease History:: Denies. - Social history:: Smoking status: Reported history of juuling and/or vaping. ROS: 16:50 Constitutional: Negative for fever, chills, and weight loss, sb4 16:50 Skin: Positive for abscess, of the left cheek, 16:50 All other systems are negative, Exam: 16:50 Constitutional: This is a well developed, well nourished patient who is awake, alert, sb4 and in no acute distress. Head/Face: Normocephalic, atraumatic. Eyes: Extra-ocular motions intact. Periorbital areas with no swelling, redness, or edema. ENT: Mucous membranes moist. Respiratory: No increased work of breathing, no retractions or nasal flaring. 16:50 Skin: abscess, that is small, of the left cheek, with induration, with surrounding cellulitis, that is mild, Vital Signs: 16:37 BP 130 / 83; Pulse 71; Resp 16; Temp 97.7; Pulse Ox 100% ; Weight 61.23 kg; Height 5 dd2 ft. 2 in. ; Pain 7/10; 16:37 Body Mass Index 24.69 (61.23 kg, 157.48 cm) dd2 16:37 Pain Scale: Adult dd2 Procedures: 17:11 I \T\ D: Incision and drainage was performed for an abscess of the left left cheek sb4 Prepped with Betadine, Anesthetized with nothing. Incised with 21 gauage. Drained small amount purulent fluid. the patient tolerated the procedure well. MDM: 16:34 Medical Screening Exam initiated sb4 16:56 Differential diagnosis: abscess, cellulitis, HSV. sb4 17:11 Data reviewed: vital signs, nurses notes, and as a result, I will discharge patient. sb4 Counseling: I had a detailed discussion with the patient and/or guardian regarding the historical points, exam findings, and any diagnostic results supporting the discharge/admit diagnosis, the need for outpatient follow up, for definitive care, to return to the emergency department if symptoms worsen or persist or if there are any questions or concerns that arise at home. Administered Medications: 16:45 Drug: Lidocaine Mucous Membrane Gel 2 % 1 application Mucous Membrane once Route: bp Mucous Membrane; 16:52 Drug: Ibuprofen PO 800 mg PO once Route: PO; bp 17:18 Follow up: Response: No adverse reaction bp 16:53 Drug: HYDROcodone-acetaminophen PO 5 mg-325 mg 1 tabs PO once Route: PO; bp 17:18 Follow up: Response: No adverse reaction bp 17:18 Drug: Trimethoprim-Sulfamethoxazole PO (160 mg-800 mg (DS) 1 tablet PO once Route: PO; bp 17:18 Follow up: Response: No adverse reaction bp Disposition: 17:50 I was immediately available on-site in the Emergency Department for consultation in the ms3 care of the patient. Disposition Summary: 02/17/25 17:12 Discharge Ordered Notes: Location: Home sb4 Problem: new sb4 Symptoms: have improved sb4 Condition: Stable sb4 Diagnosis - Cutaneous abscess of face sb4 Followup: sb4 - With: Emergency Department - When: As needed - Reason: Fever > 102 F, Worsening of condition Discharge Instructions: - Discharge Summary Sheet sb4 - Skin Abscess, Iizp-jw-Erbu sb4 - Incision and Drainage, Care After sb4 Forms: - Antibiotic Education sb4 - Patient Portal Instructions sb4 - Leadership Thank You Letter sb4 Prescriptions: - Bactrim DS 800-160 mg Oral Tablet - take 1 tablet ORAL route every 12 hours for 10 days; 20 tablet; Refills: 0, sb4 Product Selection Permitted Signatures: Bijan Rangel RN RN bp Kvng Modi DO DO ms3 Marcy Ordoñez PA-C PA-C sb4 TJ YO, RN RN dd2 Corrections: (The following items were deleted from the chart) 16: 16:36 Allergies: NKA; dd2 dd2 1637 16:36 PMHx: Anxiety; dd2 dd2 16:37 16:36 PSHx: None; dd2 dd2
--- NOTE | 2025-02-17 17:12 | ER ---
Nurse's Notes [facility] Name: Soha Ray Age: 39 yrs Sex: Female : 1985 Arrival Date: 02/17/2025 Time: 16:30 Bed 20 Private MD: Diagnosis: Cutaneous abscess of face Presentation: 02/17 16:37 Chief complaint: Patient states: Abscess to L side of upper lip since Monday, getting dd2 worse since. Coronavirus screen: Client denies travel out of the [place] in the last 14 days. At this time, the client does not indicate any symptoms associated with coronavirus-19. Ebola Screen: Patient denies travel to an Ebola-affected area in the 21 days before illness onset. Initial Sepsis Screen: Does the patient meet any 2 criteria? No. Patient's initial sepsis screen is negative. Does the patient have a suspected source of infection? No. Patient's initial sepsis screen is negative. Risk Assessment: Do you want to hurt yourself or someone else? Patient reports no desire to harm self or others. Onset of symptoms was February 15, 2025. 16:37 Method Of Arrival: Ambulatory dd2 16:37 Acuity: JEREMIAH 4 dd2 Triage Assessment: 16:37 General: Appears uncomfortable, Behavior is calm, cooperative, appropriate for age. ll1 Pain: Complains of pain in upper lip Pain currently is 7 out of 10 on a pain scale. Quality of pain is described as aching. Derm: Abscess located on upper lip is less than dime sized has no drainage, is red, is raised. Historical: - Allergies: 16:36 No Known Allergies; dd2 - PMHx: 16:36 Anxiety; dd2 - PSHx: 16:36 partial hysterectomy; dd2 - Immunization history:: Adult Immunizations up to date. - Infectious Disease History:: Denies. - Social history:: Smoking status: Reported history of juuling and/or vaping. Screenin:46 [facility] ED Fall Risk Assessment (Adult) History of falling in the last 3 months, bp including since admission No falls in past 3 months (0 pts) Confusion or Disorientation No (0 pts) Intoxicated or Sedated No (0 pts) Impaired Gait No (0 pts) Mobility Assist Device Used No (0 pt) Altered Elimination No (0 pt) Score/Fall Risk Level 0 - 2 = Low Risk Oriented to surroundings. Abuse screen: Denies threats or abuse. Denies injuries from another. Nutritional screening: No deficits noted. Tuberculosis screening: No symptoms or risk factors identified. Assessment: 16:46 General: SEE TRIAGE NOTE. bp Vital Signs: 16:37 BP 130 / 83; Pulse 71; Resp 16; Temp 97.7; Pulse Ox 100% ; Weight 61.23 kg; Height 5 dd2 ft. 2 in. ; Pain 7/10; 16:37 Body Mass Index 24.69 (61.23 kg, 157.48 cm) dd2 16:37 Pain Scale: Adult dd2 ED Course: 16:32 Patient arrived in ED. al6 16:34 Marcy Ordoñez PA-C is PHCP. sb4 16:34 Kvng Modi DO is Attending Physician. sb4 16:36 Arm band placed on. dd2 16:39 Triage completed. dd2 16:45 Bijan Rangel, WM is Primary Nurse. bp 16:46 Patient has correct armband on for positive identification. bp 17:19 Assist provider with I \T\ D: of an abscess on LEFT UPPER LIP Set up I\T\D tray. Performed bp by Marcy Ordoñez PA-C Patient tolerated well. Patient did not have IV access during this emergency room visit. Administered Medications: 16:45 Drug: Lidocaine Mucous Membrane Gel 2 % 1 application Mucous Membrane once Route: bp Mucous Membrane; 16:52 Drug: Ibuprofen PO 800 mg PO once Route: PO; bp 17:18 Follow up: Response: No adverse reaction bp 16:53 Drug: HYDROcodone-acetaminophen PO 5 mg-325 mg 1 tabs PO once Route: PO; bp 17:18 Follow up: Response: No adverse reaction bp 17:18 Drug: Trimethoprim-Sulfamethoxazole PO (160 mg-800 mg (DS) 1 tablet PO once Route: PO; bp 17:18 Follow up: Response: No adverse reaction bp Medication: 16:46 VIS not applicable for this client. bp Outcome: 17:12 Discharge ordered by . sb4 17:19 Discharged to home ambulatory, bp 17:19 Condition: stable 17:19 Discharge instructions given to patient, Instructed on discharge instructions, follow up and referral plans. medication usage, wound care, Demonstrated understanding of instructions, follow-up care, medications, wound care, Prescriptions given X 1, 17:20 Patient left the ED. bp Signatures: Bijan Rangel RN RN bp Samy Spangler RN RN ll1 Marcy Ordoñez PA-C PA-C sb4 TJ YO RN RN dd2 Oly Medina6 Corrections: (The following items were deleted from the chart) 16:37 16:36 Allergies: NKA; dd2 dd2 16:37 16:36 PMHx: Anxiety; dd2 dd2 16:37 16:36 PSHx: None; dd2 dd2 16:39 16:37 Acuity: JEREMIAH 3 dd2 dd2
[2025-02-17] MEDS ORDERED: SMZ./TMP. 800/160 MG TABLET ONE (17:13)
[2025-02-17 21:22] VITALS: BP 130/83; TEMP 97.7; O2SAT 100
== END 2025-02-17 17:20 | disposition home or self-care (01) ==
LOC: ER 16:30
PROC: 0H91XZZ Drainage of Face Skin, External Approach (ICD-10-PCS; principal; 2025-02-17)
DX: L02.01 Cutaneous abscess of face (principal)

== ENCOUNTER 2025-02-18 15:50 | Emergency (ER) | payer SELFPAY ==
--- OUTSIDE RECORDS SUMMARY | 2025-02-18 15:54 | XMS REPORT | Continuity of Care Document ---
Author Name Unknown Address [address] [place] [address] [facility] [place] Address [address] [facility] [facility] [place] [address] Care Team Providers Care Reference Library Assistant Name Role Phone KATIE HOWARD Primary Care Physician Unavailab TITUS Louise Attending Clinician Unavailable Titus Esparza DO Attending Clinician [phone] TANNER HUNTER Attending Clinician Unavailable Nurse, [facility] Attending Clinician Un available Unknown, Attending Attending Clinician Unavailab le Doctor Unassigned, [place] Attending Clinician U dylonailEmilie Patel Attending Clinician ADIS Dumont Attending Clinician Unavailable TITUS ESPARZA Admitting Clinician Unavailable Emilie Correa Admitting Clinician Lázaro farris Payers Payer Name Policy Type Policy Number Effective Date Expirati on Date Source TSHBP 90 DEGREE AND BENEFITS [id number] 2023 00:00:00 Problems Condition Name Condition Details Condition Category Status Onset Date Resolution Date Last Treatment Date Treating Clinician Comments Source Papanicola ou smear of cervix with low grade squamous intraepith elial lesion (LGSIL) Papanicola ou smear of cervix with low grade squamous intraepith elial lesion (LGSIL) Disease Active 11-03 00:00: 00 [facility] Cervical high risk human papillomav irus (HPV) DNA test positive Cervical high risk human papillomav irus (HPV) DNA test positive Disease Active 11-03 00:00: 00 [facility] Status post colposcopy Status post colposcopy Disease Active 11-03 00:00: 00 [facility] Contracept kenya management Contracept kenya management Disease Active 10-04 00:00: 00 [facility] Irregular menstrual cycle Irregular menstrual cycle Disease Active 03-18 00:00: 00 [facility] Acne Acne Disease Active 03-18 00:00: 00 [facility] Allergies, Adverse Reactions, Alerts Allergy Name Allergy Type Status Severity Reaction(s) Onset Date Inactive Date Treating Clinician Comments Source No Known Allergie s DA Active U 2012-06 00:00: 00 [facility] NO KNOWN ALLERGIE S Drug Class Active [facility] Social History Social Habit Start Date Stop Date Quantity Comments Source [facility] 2023-07-18 00:00:00 2023-07-18 00:00:00 0 /d [facility] History of Social function 2023-07-18 00:00:00 2023-07-18 00:00:00 [facility] Tobacco use and exposure 2014-03-18 00:00:00 2014-03-18 00:00:00 Smokeless tobacco non-user [facility] Sex Assigned At 1985 00:00:00 1985 00:00:00 [facility] Smoking Status Start Date Stop Date Source Never smoked tobacco [facility] Medications Ordered Medication Name Filled Medication Name Start Date Stop Date Current Medication? Ordering Clinician Indication Dosage Frequency Signature (SIG) Comments Components Source methocarbam oL (ROBAXIN) tablet 500 mg 08-09 20:00: 00 08-09 19:24 :00 No 500mg 500 mg, Oral, ONCE NOW, 1 dose, On Mon08/09/23 at 1400, Routine [facility] naproxen sodium 550 mg tablet 08-09 00:00: 00 Yes [id number] 550mg Take 1 tablet by mouth in the morning and 1 tablet in the evening. Take with meals. [facility] methylPREDN ISolone 4 mg tablets 08-09 00:00: 00 Yes [id number] Take by mouth SEE-INSTRU CTIONS. follow package directions [facility] methocarbam oL 500 mg tablet 08-09 00:00: 00 08-15 05:59 :00 No [id number] 500mg Take 1 tablet by mouth in the morning and 1 tablet at noon and 1 tablet in the evening. Do all this for 5 days. [facility] norgestimat e-ethinyl estradiol (TRI-SPRINT EC) 0.18/0.215/ 0.25 mg-35 mcg (28) tablet 10-04 00:00: 00 Yes [id number] 1{tbl} Take 1 Tab by mouth daily. [facility] Immunizations Ordered Immunization Name Filled Immunization Name Date Status Comments Source TDAP 2013-02-24 00:00:00 Completed [facility] TDAP Unknown Completed [facility] TDAP Unknown Completed [facility] TDAP Unknown Completed [facility] Vital Signs Vital Name Observation Time Observation Value Comments S ource Systolic blood pressure 2023-08-09 18:35:00 137 mm[Hg] [facility] Diastolic blood pressure 2023-08-09 18:35:00 91 mm[Hg] [facility] Heart rate 2023-08-09 18:35:00 83 /min [facility] Body temperature 2023-08-09 18:35:00 37.39 Yeimi [facility] Respiratory rate 2023-08-09 18:35:00 18 /min [facility] Body height 2023-08-09 18:35:00 157.5 cm [facility] Body weight 2023-08-09 18:35:00 65.318 kg [facility] BMI 2023-08-09 18:35:00 26.34 kg/m2 [facility] Oxygen saturation in Arterial blood by Pulse oximetry 2023-08-09 18:35:00 100 /min [facility] Systolic blood pressure 2023-08-09 17:59:00 141 mm[Hg] [facility] Diastolic blood pressure 2023-08-09 17:59:00 106 mm[Hg] [facility] Heart rate 2023-08-09 17:59:00 83 /min [facility] Body temperature 2023-08-09 17:59:00 36.5 Yeimi [facility] Respiratory rate 2023-08-09 17:59:00 28 /min [facility] Body height 2023-08-09 17:59:00 157.5 cm [facility] Body weight 2023-08-09 17:59:00 65.516 kg [facility] BMI 2023-08-09 17:59:00 26.42 kg/m2 [facility] Oxygen saturation in Arterial blood by Pulse oximetry 2023-08-09 17:59:00 100 /min [facility] Systolic blood pressure 2022-05-27 21:13:00 125 mm[Hg] [facility] Diastolic blood pressure 2022-05-27 21:13:00 81 mm[Hg] [facility] Heart rate 2022-05-27 21:13:00 86 /min [facility] hospital Body temperature 2022-05-27 21:13:00 36.78 Yeimi [facility] Respiratory rate 2022-05-27 21:13:00 16 /min [facility] Body height 2022-05-27 21:13:00 157.5 cm [facility] Body weight 2022-05-27 21:13:00 61.236 kg [facility] acute hospital BMI 2022-05-27 21:13:00 24.69 kg/m2 [facility] acute hospital Oxygen saturation in Arterial blood by Pulse oximetry 2022-05-27 21:13:00 98 /min [facility] Procedures Procedure Date / Time Performed Performing Clinicia n Source ASSIGNMENT OF BENEFITS 2023-08-09 20:22:21 Docto r Unassigned, [place] [facility] CT CERVICAL SPINE WO CONTRAST 2023-08-09 19:48:00 Titus Esparza [facility] CT THORACIC SPINE WO CONTRAST 2023-08-09 19:48:00 Titus Esparza [facility] URINALYSIS 2023-08-09 19:24:00 Titus Esparza [facility] CONSENT/REFUSAL FOR DIAGNOSIS AND TREATMENT 2023-08-09 18:21:40 Doctor Unassigned, [place] [facility] PATIENT FINANCIAL POLICY 2023-08-09 17:51:27 Doctor Unassigned, [place] [facility] ASSIGNMENT OF BENEFITS 2023-08-09 17:51:15 Docto r Unassigned, [place] [facility] Encounters Start Date/Time End Date/Time Encounter Type Admission Type Attending [facility] Facility Care Department Encounter ID Source 2023-08-09 12:37:00 2023-08-09 14:49:00 Emergency X TITUS ESPARZA [facility] ERT [id number] [facility] 2023-08-09 12:37:00 2023-08-09 14:49:00 Emergency Titus Esparza [facility] [id number] [id number] [facility] 2023-08-09 12:00:00 2023-08-09 13:19:58 Outpatient R TANNER HUNTER [facility] [id number] [facility] 2023-08-09 12:00:00 2023-08-09 12:20:00 Nurse Visit Nurse, [facility] Unknown, Attending [facility] 1.84.114 [id number] [id number] [id number] [facility] 2023-08-09 00:00:00 2023-08-09 00:00:00 Orders Only Doctor Unassigned, [place] [facility] [id number] [id number] [id number] [id number] [facility] 2022-05-27 15:00:00 2022-05-27 15:16:51 Outpatient R TANNER HUNTER [facility] [id number] [facility] 2022-05-27 15:00:00 2022-05-27 15:16:51 Nurse Visit Nurse, [facility] Unknown, Attending [facility] [id number] [id number] [id number] [id number] [facility] 2021-06-10 10:10:00 2021-06-11 11:24:00 Inpatient Emilie Wilcox [facility] MEDI.01 [id number] [facility] 2021-02-10 18:10:00 2021-02-10 18:10:00 Outpatient ADIS NOLAND [facility] [id number] [facility] 2021-02-04 11:30:00 2021-02-02 11:30:00 Inpatient Emilie Wilcox [facility] DAYS [id number] [facility] Results Test Description Test Time Test Comments [...] preserved. The paraspinal soft tissues are unremarkable. [facility] CT THORACIC SPINE WO CONTRAST 2023-07-27 4 [...] preserved. The paraspinal soft tissues are unremarkable. [facility] HGB [id number] 06:37:00* Test Item Value Reference Range Interpretation Comme nts HEMOGLOBIN (test code = HGB) 12.2 g/dL 10.1-13.8 N HEMATOCRIT (test code = HCT) 35.7 % 32.5-41.8 N COVID 19 Asymptomatic IH [id number] 14:18:00* Test Item Value Reference Range Interpretation [...] testsfor detection and/or diagnosis of COVID-19 under Jvincev962(b)(1) of the Act, 21 U.S.C. 360bbb-3(b)(1), unless theauthorization is terminated or revoked sooner. PROTHROMBIN [id number] 13:24:00* Test Item Value Reference Range Interpretation Comme nts PROTHROMBIN TIME PATIENT (te st code = PTP) 12.8 secs 10.1-12.3 H THROMBOPLASTIN TIME [id number] 13:24:00* Test Item Value Reference Range Interpretation Comme nts THROMBOPLASTIN TIME PARTIAL (test code = PTT) 35.0 secs 22-38 N CBC W/AUTO [id number] 13:15:00* Test Item Value Reference Range Interpretation [...] code = PLTMR) NORMAL NORMAL HCG SERUM [id number] 12:56:00* Test Item Value Reference Range Interpretation Comme nts HCG SERUM QUAL (test code = HCGQL) NEGATIVE Notes Date/Time Note Provider Source 2023-08-09 14:48:26 Patient discharged home. Follow up with pcp as needed. Return to ED if symptoms worsen and don't improve. Patel RN [facility] 2023-08-09 12:34:54 Patient arrived ambulatory c/o of neck pain and back pain started yesterday. Denies any injury to her upper back and neck. Tried tylenol yesterday did not help with pain. Only thing that helped with pain was a heating pad. Carlos RN [facility] 2021-06-11 07:18:00 [facility] Discharge Summary REPORT#:[id number] REPORT STATUS: Signed DATE:06/11/21 TIME: 717 PATIENT: ANALI GALLARDO UNIT #: [id number] ROOM/BED: [address] : [birth year] AGE: 35 SEX: F [...] yes (mechanical comp device) at 0723 RPT #:[id number] END OF REPORT [facility] 2021-06-10 09:51:00 [facility] Clinical Note REPORT#:[id number] REPORT STATUS: Signed DATE:06/10/21 TIME: 950 PATIENT: ANALI GALLARDO UNIT #: [id number] ROOM/BED: : 81 AGE: 35 SEX: F [...] breast aug ALL NKDA at 0957 RPT #:[id number] END OF REPORT [facility] 2021-06-10 09:46:00 [facility] Full Op Note REPORT#:[id number] REPORT STATUS: Signed DATE:06/10/21 TIME: 945 PATIENT: ANALI GALLARDO UNIT #: [id number] ROOM/BED: 2630-A : 81 AGE: 35 SEX: [...] in the dorsal lithotomy position in the [facility]. A Ash catheter was placed. A weighted speculum was inserted and a right angle retractor and the cervix was grasped with a single tooth tenaculum. The uterus was then sounded and then progressively dilated. The [employer] manipulator device was now placed into the [...] stable condition. Primary Surgeon: Emilie Correa MD Proof Technician Helper(s): MAXWELL Rosado Anesthesia: general anesthesia Operative findings: [...] assist Dr. Chelo Singer, R3 at 1207 [facility] #:[id number] END OF REPORT [facility]
--- NOTE | 2025-02-18 15:59 | EDPHYS ---
Physician Documentation [facility] Name: Soha Ray Age: 39 yrs Sex: Female : 1985 Arrival Date: 02/18/2025 Time: 15:50 Bed IW1 Private MD: ED Physician Jonathan Ortiz HPI: 02/18 15:57 This 39 yrs old Female presents to ER via Unassigned with complaints of Facial Swelling.kb 15:59 Pt is a 39 year old female who presents for abscess to left side of face just above kb lip. STates she was seen here yesterday, had it lanced and was put on Bactrim. States she had one dose while here yesterday, but hasn't picked up the prescription for the rest yet. Came back because it feels like it is getting worse. . 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 - Infectious Disease History:: Denies. - Social history:: Smoking status: Reported history of juuling and/or vaping. ROS: 15:56 Constitutional: As per HPI kb Exam: 15:56 Constitutional: This is a well developed, well nourished patient who is awake, alert, kb and in no acute distress. Head/Face: Normocephalic, atraumatic. ENT: Moist Mucous membranes Cardiovascular: Regular rate Respiratory: Respirations even and unlabored. No increased work of breathing. Talking in full sentences MS/ Extremity: Pulses equal, no cyanosis. Neurovascular intact. Full, normal range of motion. Neuro: Awake and alert, GCS 15, oriented to person, place, time, and situation. 15:56 Skin: abscess, that is small, of the left cheek, Vital Signs: 16:15 BP 121 / 84; Pulse 65; Resp 17; Temp 99.1; Pulse Ox 100% ; Weight 61.23 kg; Height 5 jl7 ft. 2 in. ; Pain 8/10; 16:15 Body Mass Index 24.69 (61.23 kg, 157.48 cm) jl7 16:15 Pain Scale: Adult jl7 MDM: 15:54 Medical Screening Exam initiated kb 15:56 Differential diagnosis: cellulitis, abscess, insect bite. Data reviewed: vital signs, kb nurses notes. 15:57 Counseling: I had a detailed discussion with the patient and/or guardian regarding the kb historical points, exam findings, and any diagnostic results supporting the discharge/admit diagnosis, the need for outpatient follow up, a family practitioner, to return to the emergency department if symptoms worsen or persist or if there are any questions or concerns that arise at home. Administered Medications: 16:30 Drug: Trimethoprim-Sulfamethoxazole PO (160 mg-800 mg (DS) 1 tablet PO once Route: PO; jl7 17:39 Follow up: Response: Medication administered at discharge. jl7 16:30 Drug: Cephalexin PO 500 mg PO once Route: PO; jl7 17:39 Follow up: Response: Medication administered at discharge. 7 Disposition: 18:25 Co-signature as Attending Physician, Jonathan Ortiz MD I reviewed the patient's care rn provided by the Advanced Practice Provider and agree with the diagnosis and treatment plan. Disposition Summary: 02/18/25 15:59 Discharge Ordered Notes: Location: Home Condition: Stable kb Diagnosis - Cutaneous abscess of face kb Followup: kb - With: Emergency Department - When: As needed - Reason: Worsening of condition Followup: kb - With: Private Physician - When: 2 - 3 days - Reason: Recheck today's complaints, Continuance of care, Re-evaluation by your physician Discharge Instructions: - Discharge Summary Sheet kb - Skin Abscess, [id number] kb Forms: - Medication Reconciliation Form kb - Antibiotic Education kb - Prescription Opioid Use kb - Patient Portal Instructions kb - Leadership Thank You Letter kb Prescriptions: - Cephalexin 500 mg Oral Capsule - take 1 capsule ORAL route every 8 hours for 10 days; 30 capsule; Refills: 0, kb Product Selection Permitted Signatures: Jackie Vigil, CONNIE AGUILAR-Jonathan Layton MD MD rn Leal, Jahala, RN RN jl7
[2025-02-18] MEDS ORDERED: CEPHALEXIN 250 MG CAP ONE (16:31)
[2025-02-18] MEDS ORDERED: SMZ./TMP. 800/160 MG TABLET ONE (16:31)
--- NOTE | 2025-02-18 17:07 | ER ---
Nurse's Notes [facility] Name: Soha Ray Age: 39 yrs Sex: Female : 1985 Arrival Date: 02/18/2025 Time: 15:50 Bed IW1 Private MD: Diagnosis: Cutaneous abscess of face Presentation: 02/18 16:15 Chief complaint: Patient states: Seen yesterday for abscess on upper lip, I\T\D jl7 performed, pt has not picked up RX and the pain is worse. 16:15 Coronavirus screen: At this time, the client does not indicate any symptoms associated jl7 with coronavirus-19. Ebola Screen: No symptoms or risks identified at this time. Initial Sepsis Screen: Does the patient meet any 2 criteria? No. Patient's initial sepsis screen is negative. Does the patient have a suspected source of infection? No. Patient's initial sepsis screen is negative. Risk Assessment: Do you want to hurt yourself or someone else? Patient reports no desire to harm self or others. Onset of symptoms was February 15, 2025. 16:15 Method Of Arrival: Ambulatory [facility] 16:15 Acuity: JEREMIAH 3 jl7 Triage Assessment: 16:15 General: Appears in no apparent distress. uncomfortable, Behavior is calm, cooperative, jl7 appropriate for age. Pain: Complains of pain in face Pain currently is 8 out of 10 on a pain scale. 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 - Infectious Disease History:: Denies. - Social history:: Smoking status: Reported history of juuling and/or vaping. Screenin:15 [facility] ED Fall Risk Assessment (Adult) History of falling in the last 3 months, jl7 including since admission No falls in past 3 months (0 pts) Confusion or Disorientation No (0 pts) Intoxicated or Sedated No (0 pts) Impaired Gait No (0 pts) Mobility Assist Device Used No (0 pt) Altered Elimination No (0 pt) Score/Fall Risk Level 0 - 2 = Low Risk Oriented to surroundings, Maintained a safe environment. Abuse screen: Denies threats or abuse. Denies injuries from another. Nutritional screening: No deficits noted. Tuberculosis screening: No symptoms or risk factors identified. Vital Signs: 16:15 BP 121 / 84; Pulse 65; Resp 17; Temp 99.1; Pulse Ox 100% ; Weight 61.23 kg; Height 5 jl7 ft. 2 in. ; Pain 8/10; 16:15 Body Mass Index 24.69 (61.23 kg, 157.48 cm) jl7 16:15 Pain Scale: Adult jl7 ED Course: 15:53 Patient arrived in ED. al6 15:54 Jackie Vigil [facility]-C [facility] kb 15:54 Jonathan Ortiz MD is Attending Physician. kb 16:15 Arm band placed on right wrist. jl7 16:15 Patient has correct armband on for positive identification. Provided Education on: jl7 discharge. 16:15 No provider procedures requiring assistance completed. Patient did not have IV access jl7 during this emergency room visit. 17:38 Triage completed. jl7 Administered Medications: 16:30 Drug: Trimethoprim-Sulfamethoxazole PO (160 mg-800 mg (DS) 1 tablet PO once Route: PO; jl7 17:39 Follow up: Response: Medication administered at discharge. jl7 16:30 Drug: Cephalexin PO 500 mg PO once Route: PO; jl7 17:39 Follow up: Response: Medication administered at discharge. jl7 Medication: 16:15 VIS not applicable for this client. jl7 Outcome: 15:59 Discharge ordered by MD. kb 16:30 Discharged to home ambulatory, jl7 16:30 Condition: stable 16:30 Discharge instructions given to patient, Instructed on discharge instructions, follow up and referral plans. medication usage, Demonstrated understanding of instructions, follow-up care, medications, Prescriptions given X 1, 17:06 Patient left the ED. jl7 Signatures: Jackie Vigil FNP-C FNP-Ckb Leal, Jahala, RN RN jl7 Oly Medina al6
== END 2025-02-18 17:06 | disposition home or self-care (01) ==
LOC: ER 15:50
DX: L02.01 Cutaneous abscess of face (principal)